=== PATIENT | male | born 1990 | race Caucasian/White ===

== ENCOUNTER 2018-06-13 15:38 | Emergency (ER) | payer MEDICAID | END 2018-06-13 16:48 | disposition left against medical advice (07) | LOC: ER 15:38 | DX: Z00.8 Encounter for other general examination (principal); Z53.21 Procedure and treatment not carried out due to patient leaving prior to being seen by health care provider ==

== ENCOUNTER 2019-09-15 01:04 | Emergency (ER) | payer MEDICARE, MEDICAID ==
[~2019-09-15] VITALS: Ht 180.3 cm; Wt 79.0 kg
[2019-09-15 01:36] LABS: BASOPHILS % (AUTO) 0.6 % (0-1); EOSINOPHILS # (AUTO) 0.1 X10'3 (0-0.9); HEMATOCRIT 44.6 % (42.0-52.0); HEMOGLOBIN 15.6 g/dl (14.0-17.9); LYMPHOCYTES # (AUTO) 2.6 X10'3 (1.1-4.8); LYMPHOCYTES % (AUTO) 35.4 % (21-51); MEAN CORPUSCULAR VOLUME 91.3 FL (78-98); MEAN PLATELET VOLUME 7.5 FL (7.4-10.4); MONOCYTES # (AUTO) 0.5 X10'3 (0-0.9); MONOCYTES % (AUTO) 6.4 % (2-12); NEUTROPHILS # (AUTO) 4.1 X10'3 (1.8-7.7); NEUTROPHILS % (AUTO) 56.6 % (42-75); PLATELET COUNT 265 X10'3 (140-440); RED BLOOD COUNT 4.89 X10'6 (4.70-6.10); WHITE BLOOD COUNT 7.2 X10'3 (4.5-11.0)
[2019-09-15 01:46] LABS: ALANINE AMINOTRANSFERASE 26 U/L (12-78); ALBUMIN 4.4 G/DL (3.4-5.0); ALBUMIN/GLOBULIN RATIO 1.3 (1.1-1.5); ALKALINE PHOSPHATASE 72 IU/L (46-116); ANION GAP 12 (8-16); ASPARTATE AMINO TRANSFERASE 18 U/L (10-37); BILIRUBIN,TOTAL 0.8 MG/DL (0.1-1.0); BLOOD UREA NITROGEN 7 MG/DL (7-18); BUN/CREATININE RATIO 6.5 (5.4-32.0); CALCIUM 8.4 MG/DL (8.5-10.1); CHLORIDE 105 MMOL/L (99-107); CREATININE 1.07 MG/DL (0.60-1.10); ETHANOL 0.086 GM/DL (0.0-0.010); GLUCOSE 123 MG/DL (70-104); POTASSIUM 3.1 MMOL/L (3.5-5.1); SODIUM 144 MMOL/L (135-145); TOTAL PROTEIN 7.7 G/DL (6.4-8.2); eGFR 82 ML/MIN
[2019-09-15 02:43] LABS: URINE AMPHETAMINE SCREEN NEGATIVE (Neg); URINE BARBITUATE SCREEN NEGATIVE (Neg); URINE BENZODIAZEPINES SCREEN NEGATIVE (Neg); URINE CANNABINOID SCREEN NEGATIVE (Neg); URINE COCAINE SCREEN NEGATIVE (Neg); URINE METHADONE SCREEN NEGATIVE (Neg); URINE OPIATE SCREEN NEGATIVE (Neg); URINE PHENCYCLIDINE SCREEN NEGATIVE (Neg)
--- NOTE | 2019-09-15 06:17 | NUR ---
Report received from RN Cap at this time. Patient asleep, no signs of distress noted, per RN patient requested food, breakfast tray ordered. Patient within view of staff at all times, will continue to monitor.
--- NOTE | 2019-09-15 10:38 | NUR ---
Amor from [facility] at bedside to assess the patient at this time.
[2019-09-15 13:14] VITALS: BP 141/90
== END 2019-09-15 13:18 | disposition home or self-care (01) ==
LOC: ER 01:05
DX: S50.811A Abrasion of right forearm, initial encounter (principal); F32.9 Major depressive disorder, single episode, unspecified; R45.851 Suicidal ideations; F10.929 Alcohol use, unspecified with intoxication, unspecified; E87.6 Hypokalemia; F12.90 Cannabis use, unspecified, uncomplicated; X78.1XXA Intentional self-harm by knife, initial encounter; Y93.89 Activity, other specified; Y92.89 Other specified places as the place of occurrence of the external cause; Y99.9 Unspecified external cause status; Y90.9 Presence of alcohol in blood, level not specified
CPT/HCPCS: 36415; 80053; 80305; 80320; 85025; 99284

== ENCOUNTER 2019-11-22 09:04 | Emergency (ER) | payer MEDICARE, MEDICAID ==
[~2019-11-22] VITALS: Ht 180.3 cm; Wt 64.5 kg
[2019-11-22] MEDS ORDERED: normal saline 1000ML IV soln IVB ONE (09:25)
[2019-11-22 09:48] LABS: BASOPHILS % (AUTO) 0.6 % (0-1); EOSINOPHILS % (AUTO) 0.2 % (0-6); HEMOGLOBIN 15.9 g/dl (14.0-17.9); LYMPHOCYTES # (AUTO) 1.3 X10'3 (1.1-4.8); LYMPHOCYTES % (AUTO) 19.7 % (21-51); MEAN CORPUSCULAR HEMOGLOBIN 31.6 PG (27.0-31.0); MEAN CORPUSCULAR HGB CONC 33.9 g/dL (33.0-36.5); MEAN CORPUSCULAR VOLUME 93.1 FL (78-98); MONOCYTES # (AUTO) 0.4 X10'3 (0-0.9); MONOCYTES % (AUTO) 6.8 % (2-12); NEUTROPHILS # (AUTO) 4.7 X10'3 (1.8-7.7); NEUTROPHILS % (AUTO) 72.7 % (42-75); PLATELET COUNT 258 X10'3 (140-440); RED BLOOD COUNT 5.04 X10'6 (4.70-6.10); RED CELL DISTRIBUTION WIDTH 12.9 % (11.5-14.5); WHITE BLOOD COUNT 6.5 X10'3 (4.5-11.0)
[2019-11-22 09:53] LABS: ALANINE AMINOTRANSFERASE 22 U/L (12-78); ALBUMIN 4.9 G/DL (3.4-5.0); ALBUMIN/GLOBULIN RATIO 1.3 (1.1-1.5); ALKALINE PHOSPHATASE 47 IU/L (46-116); ANION GAP 17 (8-16); ASPARTATE AMINO TRANSFERASE 24 U/L (10-37); BILIRUBIN,TOTAL 1.2 MG/DL (0.1-1.0); BLOOD UREA NITROGEN 30 MG/DL (7-18); BUN/CREATININE RATIO 22.4 (5.4-32.0); CALCIUM 10.1 MG/DL (8.5-10.1); CHLORIDE 110 MMOL/L (99-107); CREATININE 1.34 MG/DL (0.60-1.10); GLUCOSE 90 MG/DL (70-104); LIPASE 120 U/L (73-393); SODIUM 150 MMOL/L (135-145); TOTAL CARBON DIOXIDE 23.5 MMOL/L (24-32); TOTAL PROTEIN 8.6 G/DL (6.4-8.2); eGFR 63 ML/MIN
[2019-11-22 11:48] LABS: CLARITY,URINE CLEAR (Clear); COLOR,URINE YELLOW (Yellow); GLUCOSE, URINE NEGATIVE (Neg); KETONES,URINE >=80 mg/dl (Neg); LEUKOCYTE ESTERASE ,URINE NEGATIVE (Neg); NITRITES, URINE NEGATIVE (Neg); OCCULT BLOOD,URINE NEGATIVE (Neg); PH,URINE 5.5 (4.8-8.0); PROTEIN,URINE 30 mg/dl (Neg)
[2019-11-22 11:54] LABS: URINE AMPHETAMINE SCREEN NEGATIVE (Neg); URINE BARBITUATE SCREEN NEGATIVE (Neg); URINE BENZODIAZEPINES SCREEN NEGATIVE (Neg); URINE CANNABINOID SCREEN NEGATIVE (Neg); URINE COCAINE SCREEN NEGATIVE (Neg); URINE METHADONE SCREEN NEGATIVE (Neg); URINE OPIATE SCREEN NEGATIVE (Neg); URINE PHENCYCLIDINE SCREEN NEGATIVE (Neg)
[2019-11-22 12:04] LABS: UA COLLECTION TYPE NON-SPECIFIED
[2019-11-22 12:05] LABS: MUCUS STRANDS MANY /LPF (Neg); SQUAMOUS EPITHELIAL CELL,UR FEW /LPF (FEW)
[2019-11-22 12:06] LABS: BACTERIA,URINE FEW /HPF (Neg); RBC,URINE 0-2 /HPF (0-2); WBC,URINE 0-4 /HPF (0-4)
[2019-11-22] MEDS ORDERED: MAGN296S68 PO (12:21)
[2019-11-22 13:09] VITALS: BP 118/74
== END 2019-11-22 13:07 | disposition home or self-care (01) ==
LOC: ER 09:04
DX: K59.00 Constipation, unspecified (principal); E86.0 Dehydration; F12.90 Cannabis use, unspecified, uncomplicated; Z72.89 Other problems related to lifestyle; Z79.899 Other long term (current) drug therapy
CPT/HCPCS: 36415; 74018; 80053; 80305; 81001; 83690; 85025; 96360; 99284; J7030

== ENCOUNTER → 2020-11-16 | Emergency (ER) | payer MEDICARE, MEDICAID ==
[~2020-11-16] VITALS: Ht 175.3 cm; Wt 66.5 kg
[~2020-11-16] MED LIST: MAGN296S68 PO
[2020-11-16 12:27] VITALS: BP 133/93
[2020-11-16 13:05] LABS: BASOPHILS % (AUTO) 0.4 % (0-1); EOSINOPHILS % (AUTO) 0.7 % (0-6); HEMATOCRIT 44.3 % (42.0-52.0); LYMPHOCYTES # (AUTO) 1.6 X10'3 (1.1-4.8); LYMPHOCYTES % (AUTO) 24.9 % (21-51); MEAN CORPUSCULAR HEMOGLOBIN 30.9 PG (27.0-31.0); MEAN CORPUSCULAR HGB CONC 33.9 g/dL (33.0-36.5); MEAN PLATELET VOLUME 7.8 FL (7.4-10.4); MONOCYTES # (AUTO) 0.4 X10'3 (0-0.9); MONOCYTES % (AUTO) 6.4 % (2-12); NEUTROPHILS # (AUTO) 4.3 X10'3 (1.8-7.7); NEUTROPHILS % (AUTO) 67.6 % (42-75); PLATELET COUNT 236 X10'3 (140-440); RED BLOOD COUNT 4.86 X10'6 (4.70-6.10); WHITE BLOOD COUNT 6.3 X10'3 (4.5-11.0)
[2020-11-16 13:30] LABS: ALANINE AMINOTRANSFERASE 13 U/L (12-78); ALBUMIN 4.2 G/DL (3.4-5.0); ALBUMIN/GLOBULIN RATIO 1.1 (1.1-1.5); ALKALINE PHOSPHATASE 62 IU/L (46-116); ANION GAP 11 (8-16); ASPARTATE AMINO TRANSFERASE 15 U/L (10-37); BILIRUBIN,TOTAL 0.8 MG/DL (0.1-1.0); BLOOD UREA NITROGEN 17 MG/DL (7-18); BUN/CREATININE RATIO 16.7 (5.4-32.0); CALCIUM 8.9 MG/DL (8.5-10.1); CHLORIDE 105 MMOL/L (99-107); CREATININE 1.02 MG/DL (0.60-1.10); GLUCOSE 84 MG/DL (70-104); LIPASE 66 U/L (73-393); POTASSIUM 4.1 MMOL/L (3.5-5.1); SODIUM 143 MMOL/L (135-145); TOTAL CARBON DIOXIDE 27.2 MMOL/L (24-32); TOTAL PROTEIN 8.1 G/DL (6.4-8.2); eGFR 86 ML/MIN
== END | disposition home or self-care (01) ==
LOC: ER 11:33
DX: K59.00 Constipation, unspecified (principal); F12.90 Cannabis use, unspecified, uncomplicated; Z72.89 Other problems related to lifestyle; Z79.899 Other long term (current) drug therapy
CPT/HCPCS: 36415; 74018; 80053; 82948; 83690; 85025; 99284

== ENCOUNTER 2021-05-16 06:25 | Emergency (ER) | payer MEDICARE, MEDICAID ==
[~2021-05-16] VITALS: Ht 180.3 cm; Wt 61.8 kg
[2021-05-16 13:47] VITALS: BP 120/89
== END 2021-05-16 14:09 | disposition home or self-care (01) ==
LOC: ER 06:26
DX: R19.7 Diarrhea, unspecified (principal); F12.90 Cannabis use, unspecified, uncomplicated; Z72.89 Other problems related to lifestyle; Z79.899 Other long term (current) drug therapy
CPT/HCPCS: 99281

== ENCOUNTER 2021-05-28 16:18 | Emergency (ER) | payer MEDICARE, MEDICAID ==
[~2021-05-28] VITALS: Ht 180.3 cm; Wt 65.0 kg
[2021-05-28 16:28] VITALS: BP 120/79
[2021-05-28 17:49] LABS: CLARITY,URINE SLIGHTLY CLOUDY (Clear); COLOR,URINE YELLOW (Yellow); GLUCOSE, URINE NEGATIVE (Neg); KETONES,URINE NEGATIVE (Neg); LEUKOCYTE ESTERASE ,URINE NEGATIVE (Neg); NITRITES, URINE NEGATIVE (Neg); OCCULT BLOOD,URINE NEGATIVE (Neg); PH,URINE 6.5 (4.8-8.0); PROTEIN,URINE NEGATIVE (Neg); UROBILINOGEN,URINE 0.2 E.U/dL (0.2-1.0)
[2021-05-28 17:57] LABS: UA COLLECTION TYPE CLN CATCH MIDSTREAM
[2021-05-28 17:59] LABS: BASOPHILS % (AUTO) 0.7 % (0-1); EOSINOPHILS % (AUTO) 0.4 % (0-6); HEMATOCRIT 41.8 % (42.0-52.0); HEMOGLOBIN 14.5 g/dl (14.0-17.9); LYMPHOCYTES # (AUTO) 1.4 X10'3 (1.1-4.8); LYMPHOCYTES % (AUTO) 32.5 % (21-51); MEAN CORPUSCULAR HEMOGLOBIN 31.4 PG (27.0-31.0); MEAN CORPUSCULAR HGB CONC 34.6 g/dL (33.0-36.5); MEAN CORPUSCULAR VOLUME 90.7 FL (78-98); MEAN PLATELET VOLUME 7.9 FL (7.4-10.4); MONOCYTES # (AUTO) 0.3 X10'3 (0-0.9); MONOCYTES % (AUTO) 6.8 % (2-12); NEUTROPHILS # (AUTO) 2.5 X10'3 (1.8-7.7); NEUTROPHILS % (AUTO) 59.6 % (42-75); PLATELET COUNT 236 X10'3 (140-440); RED BLOOD COUNT 4.61 X10'6 (4.70-6.10); RED CELL DISTRIBUTION WIDTH 13.5 % (11.5-14.5); WHITE BLOOD COUNT 4.2 X10'3 (4.5-11.0)
[2021-05-28 18:01] LABS: MUCUS STRANDS MANY /LPF (Neg); SQUAMOUS EPITHELIAL CELL,UR FEW /LPF (FEW)
[2021-05-28 18:02] LABS: WBC,URINE 0-4 /HPF (0-4)
[2021-05-28 18:03] LABS: BACTERIA,URINE FEW /HPF (Neg); RBC,URINE 0-2 /HPF (0-2)
[2021-05-28 18:09] LABS: ALANINE AMINOTRANSFERASE 15 U/L (12-78); ALBUMIN 4.5 G/DL (3.4-5.0); ALBUMIN/GLOBULIN RATIO 1.5 (1.1-1.5); ALKALINE PHOSPHATASE 56 IU/L (46-116); ANION GAP 8 (8-16); ASPARTATE AMINO TRANSFERASE 15 U/L (10-37); BILIRUBIN,TOTAL 1.1 MG/DL (0.1-1.0); BLOOD UREA NITROGEN 9 MG/DL (7-18); BUN/CREATININE RATIO 6.8 (5.4-32.0); CALCIUM 9.4 MG/DL (8.5-10.1); CHLORIDE 107 MMOL/L (99-107); CREATININE 1.32 MG/DL (0.60-1.10); GLUCOSE 97 MG/DL (70-104); POTASSIUM 4.1 MMOL/L (3.5-5.1); SODIUM 142 MMOL/L (135-145); TOTAL CARBON DIOXIDE 27.5 MMOL/L (24-32); TOTAL PROTEIN 7.5 G/DL (6.4-8.2); eGFR 64 ML/MIN
[2021-05-28 18:10] LABS: URINE AMPHETAMINE SCREEN NEGATIVE (Neg); URINE BARBITUATE SCREEN NEGATIVE (Neg); URINE BENZODIAZEPINES SCREEN NEGATIVE (Neg); URINE CANNABINOID SCREEN NEGATIVE (Neg); URINE COCAINE SCREEN NEGATIVE (Neg); URINE METHADONE SCREEN NEGATIVE (Neg); URINE OPIATE SCREEN NEGATIVE (Neg); URINE PHENCYCLIDINE SCREEN NEGATIVE (Neg)
[2021-05-28 18:21] LABS: ETHANOL < 0.010 GM/DL (0.0-0.010)
== END 2021-05-28 18:43 | disposition home or self-care (01) ==
LOC: ER 16:19
DX: R19.7 Diarrhea, unspecified (principal); Z20.822 Contact with and (suspected) exposure to COVID-19; R10.84 Generalized abdominal pain; R11.0 Nausea; F12.90 Cannabis use, unspecified, uncomplicated; Z72.89 Other problems related to lifestyle; Z79.899 Other long term (current) drug therapy
CPT/HCPCS: 36415; 74019; 80053; 80305; 80320; 81001; 84443; 85025; 87635; 99284; C9803

== ENCOUNTER 2022-02-24 18:11 | Emergency (ER) | payer MEDICARE, MEDICAID ==
[~2022-02-24] VITALS: Ht 175.3 cm; Wt 54.3 kg
[2022-02-24 18:47] VITALS: BP 111/77
== END 2022-02-25 03:18 | disposition left against medical advice (07) ==
LOC: ER 18:13
DX: H92.01 Otalgia, right ear (principal); Z20.822 Contact with and (suspected) exposure to COVID-19; Z53.21 Procedure and treatment not carried out due to patient leaving prior to being seen by health care provider
CPT/HCPCS: 87811

== ENCOUNTER 2022-04-06 12:32 | Emergency (ER) | payer MEDICARE, MEDICAID ==
[~2022-04-06 12:32] MED LIST changes: +ESCI20TA39 PO; -MAGN296S68 PO; +MIDO2.5T14 PO; +NO HOME MEDS; +PANT40TA54 PO; +TRAZ-251 PO
[2022-04-07] MEDS ORDERED: TRAZ-256 PO (16:17)
[2022-04-07] MEDS ORDERED: PANT-47 PO (16:17)
[2022-04-07] MEDS ORDERED: ESCI20TA39 PO (16:17)
== END 2022-04-06 15:31 | disposition left against medical advice (07) ==
LOC: ER 12:33
DX: R45.851 Suicidal ideations (principal); Z53.21 Procedure and treatment not carried out due to patient leaving prior to being seen by health care provider

== ENCOUNTER 2022-04-07 14:20 | Inpatient (IN) | payer MEDICARE, MEDICAID ==
[~2022-04-07] VITALS: Ht 175.3 cm; Wt 61.7 kg
--- NOTE | 2022-04-07 15:25 | NUR ---
Admission Note: Pt. was admitted from [facility] in a w/c, safety check was completed and belongings were inventoried by Lila Lawler. Pt. is on a 5150 for DTS. Per 5150: Pt. made suicidal statements, and reported placing a knife to his neck and starting to stab himself in a suicide attempt. Pt. has a history of 3-5 past suicide attempts, the most recent was one month ago. Pt. scored as a high risk on the [place] Suicide Risk assessment, however he is able to contract for safety while on the unit. This was endorsed to RIC Soriano and Q 15min safety checks were ordered.
[2022-04-07] MEDS ORDERED: loperamide 2mg capsule PO PRN (16:00)
[2022-04-07] MEDS ORDERED: mag hydrox/Alum hydrox/simeth 30ml oral suspension PO PRN (16:00)
[2022-04-07] MEDS ORDERED: acetaminophen 325mg tablet PO PRN ×2 (16:00)
[2022-04-07 16:01] VITALS: BP 121/82
[2022-04-07] MEDS ORDERED: TRAZ-256 PO (16:17)
[2022-04-07] MEDS ORDERED: ESCI20TA39 PO (16:17)
[2022-04-07] MEDS ORDERED: PANT-47 PO (16:17)
[2022-04-07] MEDS ORDERED: traZODone 50mg tablet PO PRN (16:35)
[2022-04-07 19:25] VITALS: BP 100/59
--- NOTE | 2022-04-08 04:24 | NUR ---
Nursing Progress Note: Problem: Pt. was admitted from [facility] Pt. is on a 5150 for DTS. Per 5150: Pt. made suicidal statements, and reported placing a knife to his neck and starting to stab himself in a suicide attempt. Pt. has a history of 3-5 past suicide attempts, the most recent was one month ago. Per ER notes pt has Differential Dx of psychosis, depression, suicidal ideation. Interventions: Maintained a safe and supportive environment, administered medication per orders with no adverse side effects, provided clear and simple instructions, provided redirection as needed, and maintained Q 15min safety checks. Response: Pt was resting in bed at start of shift. 1:1 assessment and interview at bedside, pt unable to maintain eye contact. Pt states he is having SI because he is depressed about life. Pt also states he has AH/VH. When asked of content pt states I dont remember what they say. Pt states he sees images of people. Pt did not eat dinner and refused snack. Pt states he is not hungry. Pt isolates in room. Pt slept through the night. Plan: Crisis interruption, stabilization with medication adjustment, management and monitoring in a safe and therapeutic environment until stable.
[2022-04-08 07:41] VITALS: BP 116/85
--- NOTE | 2022-04-08 07:48 | NUR ---
Noted pt low BMI 18.0 in EMR. Pt admit from [facility] DX SI, 5150, depression, and having AH/VH per EMR. Pt was malnourished on recent prior 03/13/22 admit though by discharge 04/02 was eating adequately from meals and Ensure Enlives TID. Current standing scaled wt 55.2kg down from 57.7 04/02 though pt w/ normal strength, no edema/wounds, and prior adequate intake hx. Given recent adequate intake hx pt lacks malnutrition criteria at this time though is high risk if PO regresses this admit. Will monitor for PO trends and malnutrition criteria this admit. Addendum: 04/08/22 at [address] Amended: Links added.
[2022-04-08] MEDS: pantoprazole 40mg Tablet.DR PO SCH (08:17)
[2022-04-08] MEDS: ESCITALOPRAM OXALATE 5 MG TABLET PO SCH (08:18)
--- NOTE | 2022-04-08 17:12 | NUR ---
Nursing Progress Note: Problem: Pt. was admitted from [facility] Pt. is on a 5150 for DTS. Per 5150: Pt. made suicidal statements, and reported placing a knife to his neck and starting to stab himself in a suicide attempt. Pt. has a history of 3-5 past suicide attempts, the most recent was one month ago. Patient was discharged from [facility] on 04/03/22. Per ER notes pt has Differential Dx of psychosis, depression, suicidal ideation. Interventions: Provide medication administration & medication management; Maintained a safe & supportive environment; Clear & simple instructions; Direction & encouragement regarding performance of ADLs; monitored behaviors & maintained clear boundaries; Patient physical assessment & 1:1 patient interview; Therapeutic conversation & active listening; Patient education & monitoring. Response: Received patient while he was asleep in his bed and woke up at approximately 0740. Patient appears to have a flat affect. Speaks only to questions asked by this Electronic Installer. Patient went to the [facility] for breakfast, but only ate a minimal amount of breakfast. Patient returned to his room for a patient interview. Patient reports Im very suicidal and I will kill myself with the knife that I have. Informed the patient that we will try to help him with his medication regime and also attending group sessions starting tomorrow. Patient gave this Electronic Installer a small grin and informed Okay. Patient slept all morning and got up for lunch then returned back to bed. Patient self-isolated all day. Plan: Crisis interruption, stabilization with medication adjustment, management and monitoring in a safe and therapeutic environment until stable.
[2022-04-08 20:19] VITALS: BP 99/60
--- NOTE | 2022-04-09 02:54 | NUR ---
Nursing Progress Note: Problem: Pt. was admitted from [facility] Pt. is on a 5150 for DTS. Per 5150: Pt. made suicidal statements, and reported placing a knife to his neck and starting to stab himself in a suicide attempt. Pt. has a history of 3-5 past suicide attempts, the most recent was one month ago. Patient was discharged from [facility] on 04/03/22. Per ER notes pt has Differential Dx of psychosis, depression, suicidal ideation. Interventions: Provide medication administration & medication management; Maintained a safe & supportive environment; Clear & simple instructions; Direction & encouragement regarding performance of ADLs; monitored behaviors & maintained clear boundaries; Patient physical assessment & 1:1 patient interview; Therapeutic conversation & active listening; Patient education & monitoring. Response: Pt isolated to room all shift. Declined snack. No HS routine medications. Declined PRN trazodone. Pt has a flat affect minimal answers to questions in a very soft monotone. Pt says he has suicidal thoughts but would not do anything in here. He says he hears voices but says he does not remember what they say. Declined snack sleeping at this time. Plan: Crisis interruption, stabilization with medication adjustment, management and monitoring in a safe and therapeutic environment until stable.
[2022-04-09 07:46] VITALS: BP 136/77
[2022-04-09] MEDS: pantoprazole 40mg Tablet.DR PO SCH (07:58)
[2022-04-09] MEDS: ESCITALOPRAM OXALATE 5 MG TABLET PO SCH (07:58)
--- NOTE | 2022-04-09 08:09 | NUR ---
Mom: Renata-# [phone] DAVID Alfaro
--- NOTE | 2022-04-09 08:11 | NUR ---
[facility] REFERRAL Completed and sent [facility] referral. DAVID Alfaro
[2022-04-09] MEDS: LORazepam 0.5 MG tablet PO PRN (13:50)
--- NOTE | 2022-04-09 16:44 | NUR ---
Nursing Progress Note: Problem: Pt. was admitted from [facility] Pt. is on a 5150 for DTS. Per 5150: Pt. made suicidal statements, and reported placing a knife to his neck and starting to stab himself in a suicide attempt. Pt. has a history of 3-5 past suicide attempts, the most recent was one month ago. Patient was discharged from [facility] on 04/03/22. Per ER notes pt has Differential Dx of psychosis, depression, suicidal ideation. Interventions: Provide medication administration & medication management; Maintained a safe & supportive environment; Clear & simple instructions; Direction & encouragement regarding performance of ADLs; monitored behaviors & maintained clear boundaries; Patient physical assessment & 1:1 patient interview; Therapeutic conversation & active listening; Patient education & monitoring. Response: Received patient when he woke up from his night sleep at 0720. During the patient interview, the patient denied anxiety, and reported When I get out of here I am going to sharpen my knife first then use it on my neck. Patient was observed staring eyes wide open multiple times while sitting alongside his bed throughout the day, and he appeared restless, although denying any s/s of anxiety throughout the morning. At approximately 1230 patient was observed ambulating throughout the halls, staring blankly straight ahead without making any eye contact with others, and refused his lunch. TC placed to RIC Dimas, to inform of patients anxiety and need for a prn medication to treat his anxiety. Dr. Muñoz was readily available and ordered Ativan 0.5mg po qid prn. Patient received his first dose at 1350 and laid down to rest at this time. Plan: Crisis interruption, stabilization with medication adjustment, management and monitoring in a safe and therapeutic environment until stable. Patient has been referred to [facility].
[2022-04-09 20:00] VITALS: BP 95/54
--- NOTE | 2022-04-10 01:12 | NUR ---
Nursing Progress Note: Problem: Pt. was admitted from [facility] Pt. is on a 5150 for DTS. Per 5150: Pt. made suicidal statements, and reported placing a knife to his neck and starting to stab himself in a suicide attempt. Pt. has a history of 3-5 past suicide attempts, the most recent was one month ago. Patient was discharged from [facility] on 04/03/22. Per ER notes pt has Differential Dx of psychosis, depression, suicidal ideation. Interventions: Provide medication administration & medication management; Maintained a safe & supportive environment; Clear & simple instructions; Direction & encouragement regarding performance of ADLs; monitored behaviors & maintained clear boundaries; Patient physical assessment & 1:1 patient interview; Therapeutic conversation & active listening; Patient education & monitoring. Response: 1:1 at bedside. Pt laying in bed. Appears withdrawn and depressed. Denies SI and hearing voices at this time. He tells me his depression started at age 3yo. Refused snack. "Not hungry". Encouraged him to try and eat. His lips appeared dry and chapped. Lip balm provided and pt reported it helping. Compliant with all meds. No HS meds scheduled. Pt isolated to room all shift. Declined snack. No HS routine medications. Declined PRN trazodone. Pt has a flat affect minimal answers to questions in a very soft monotone. Pt says he has suicidal thoughts but would not do anything in here. He says he hears voices but says he does not remember what they say. Declined snack sleeping at this time. Plan: Crisis interruption, stabilization with medication adjustment, management and monitoring in a safe and therapeutic environment until stable. Addendum: 04/10/22 at 0131 by Lydia Khan RN Disregard this note see following note.
--- NOTE | 2022-04-10 01:32 | NUR ---
Nursing Progress Note: Problem: Pt. was admitted from [facility] Pt. is on a 5150 for DTS. Per 5150: Pt. made suicidal statements, and reported placing a knife to his neck and starting to stab himself in a suicide attempt. Pt. has a history of 3-5 past suicide attempts, the most recent was one month ago. Patient was discharged from [facility] on 04/03/22. Per ER notes pt has Differential Dx of psychosis, depression, suicidal ideation. Interventions: Provide medication administration & medication management; Maintained a safe & supportive environment; Clear & simple instructions; Direction & encouragement regarding performance of ADLs; monitored behaviors & maintained clear boundaries; Patient physical assessment & 1:1 patient interview; Therapeutic conversation & active listening; Patient education & monitoring. Response: 1:1 at bedside. Pt laying in bed. Appears withdrawn and depressed. Denies SI and hearing voices at this time. He tells me his depression started at age 3yo. Refused snack. "Not hungry". Encouraged him to try and eat. His lips appeared dry and chapped. Lip balm provided and pt reported it helping. Compliant with all meds. No HS meds scheduled. Pt isolated to room all shift. Plan: Crisis interruption, stabilization with medication adjustment, management and monitoring in a safe and therapeutic environment until stable.
[2022-04-10 07:28] VITALS: BP 106/62
[2022-04-10] MEDS: pantoprazole 40mg Tablet.DR PO SCH (07:28)
[2022-04-10] MEDS: ESCITALOPRAM OXALATE 5 MG TABLET PO SCH (07:28)
[2022-04-10] MEDS ORDERED: haloperidol 5mg tablet PO PRN (15:05)
--- NOTE | 2022-04-10 17:28 | NUR ---
Nursing Progress Note: Yasmany Spaulding Problem: Pt. was admitted from [facility] Pt. is on a 5150 for DTS. Per 5150: Pt. made suicidal statements, and reported placing a knife to his neck and starting to stab himself in a suicide attempt. Pt. has a history of 3-5 past suicide attempts, the most recent was one month ago. Patient was discharged from [facility] on 04/03/22. Dx of psychosis, depression, suicidal ideation. Interventions: Medication administration, 1:1 MH assessment, maintained a safe and supportive environment, provided clear and simple instructions, provided encouragement regarding performance of ADLs, monitored behaviors and maintained clear boundaries, maintained Q15 minute safety checks. Response: Received pt. sleeping in his room, he woke for medications which he took without hesitation. Pt. endorses SI, stating Ill cut myself he denies HI, endorses AH I hear people, but I cant hear everything they say he denies VH. Pt. isolated in his room all shift. He briefly attended meals but left without eating breakfast and lunch. Pt. was willing to drink an Ensure at the bedside with this copy writer and also had a juice. He has poor eye contact, and speaks in a whispered voice, and presents as down casted. Pt. is disheveled, poor hygiene, and wears unit scrubs. Plan: Crisis interruption, stabilization with medication adjustment, management and monitoring in a safe and therapeutic environment until stable. Patient has been referred to [facility].
[2022-04-10 19:00] VITALS: BP 95/54
--- NOTE | 2022-04-11 04:53 | NUR ---
Nursing Progress Note: Problem: Pt. was admitted from [facility] Pt. is on a 5150 for DTS. Per 5150: Pt. made suicidal statements, and reported placing a knife to his neck and starting to stab himself in a suicide attempt. Pt. has a history of 3-5 past suicide attempts, the most recent was one month ago. Patient was discharged from [facility] on 04/03/22. Dx of psychosis, depression, suicidal ideation. Interventions: Medication administration, 1:1 MH assessment, maintained a safe and supportive environment, provided clear and simple instructions, provided encouragement regarding performance of ADLs, monitored behaviors and maintained clear boundaries, maintained Q15 minute safety checks. Response: Patient is pleasant but guarded; no scheduled medications this shift and denied needing any PRN medication. Patient denied SI, HI, A/VH; patient responded as minimal as possible. He remained in bed throughout this shift; does not appear to be having difficulty sleeping. Plan: Crisis interruption, stabilization with medication adjustment, management and monitoring in a safe and therapeutic environment until stable. Patient has been referred to [facility].
--- NOTE | 2022-04-11 07:10 | NUR ---
Initial: Pt admitted w/ major depressive disorder and SI per EMR. Currently on Regular diet mostly refusing meals. Per documentation pt mostly stays in room all day and says he is not hungry. Per nursing notes pt was willing to drink Ensure at bedside though ONS not currently ordered. Recommend adding an Ensure Enlive TID if pt is willing to drink them. LBM 04/09. Will continue to monitor. Recs: 1. Continue Regular diet; encourage PO 2. Ensure Enlive TID 3. Bowel care PRN 4. Weekly wts Addendum: 04/11/22 at [address] Amended: Links added.
[2022-04-11] MEDS: pantoprazole 40mg Tablet.DR PO SCH (07:25)
[2022-04-11] MEDS: ESCITALOPRAM OXALATE 5 MG TABLET PO SCH (07:26)
[2022-04-11 08:00] VITALS: BP 102/74
[2022-04-11] MEDS: lactose-reduced food (Ensure Enlive) - 237ml bottle PO SCH ×3 (08:00→18:33)
[2022-04-11] MEDS: LORazepam 0.5 MG tablet PO PRN ×2 (12:25→18:40)
--- NOTE | 2022-04-11 16:19 | NUR ---
Nursing Progress Note: Yasmany Spaulding Problem: Pt. was admitted from [facility] Pt. is on a 5150 for DTS. Per 5150: Pt. made suicidal statements, and reported placing a knife to his neck and starting to stab himself in a suicide attempt. Pt. has a history of 3-5 past suicide attempts, the most recent was one month ago. Patient was discharged from [facility] on 04/03/22. Dx of psychosis, depression, suicidal ideation. Interventions: Medication administration, 1:1 assessment, maintained a safe and supportive environment, provided clear and simple instructions, provided encouragement regarding performance of ADLs, monitored behaviors and maintained clear boundaries, maintained Q15 minute safety checks. Response: Received pt. sleeping in his room and awoke to take his medications. Pt. endorses SI, and reports he would use a knife he denies HI, AH, VH. Pt. required several prompts to eat his meals but often refused to go in dining room, or eat if the tray was brought in. Pt. was encouraged to increase bedside fluids, but is not compliant. Pt. presents as disheveled, poor hygiene, and wearing the same street clothes from yesterday. Pt. did take a shower after several request but did not attend to oral care. Pt. reported normal BM, but later reported LBM was 5 days ago. The communications writer reproached pt. and discussed BM Hx and he now reports 3 days since LBM, he presents as a poor historian, but c/o feeling full Bowel sounds sluggish; PRN MOM given. Pt. presents withdrawn, minimal communication, and often mumbles in a small voice. Pt. approached staff this afternoon c/o anxiety and was given PRN Ativan. He remained in his room and isolated from cohorts. Pt. refused all meals this shift. PRNs : Ativan Plan: Crisis interruption, stabilization with medication adjustment, management and monitoring in a safe and therapeutic environment until stable. Patient has been referred to [facility].
[2022-04-11 19:00] VITALS: BP 108/64
--- NOTE | 2022-04-12 03:33 | NUR ---
Nursing Progress Note: Problem: Pt. was admitted from [facility] Pt. is on a 5150 for DTS. Per 5150: Pt. made suicidal statements, and reported placing a knife to his neck and starting to stab himself in a suicide attempt. Pt. has a history of 3-5 past suicide attempts, the most recent was one month ago. Patient was discharged from [facility] on 04/03/22. Dx of psychosis, depression, suicidal ideation. Interventions: Medication administration, 1:1 MH assessment, maintained a safe and supportive environment, provided clear and simple instructions, provided encouragement regarding performance of ADLs, monitored behaviors and maintained clear boundaries, maintained Q15 minute safety checks. Response: Patient is pleasant; remains isolative and guarded. Talked to production underwriter a little more this shift than previous night. Appeared to be anxious and PRN Ativan provided. Patient appears severely depressed and stays in bed throughout the entire shift. He endorses SI without a plan; denies HI, A/VH. Patient encouraged to drink more fluids. He is observed sleeping and does not appear to be having difficulty. D/t Hx of HIV, Dr. Stephenson ordered lab draw for CD4 count and viral load. Plan: Crisis interruption, stabilization with medication adjustment, management and monitoring in a safe and therapeutic environment until stable. Patient has been referred to [facility].
[2022-04-12 07:05] VITALS: BP 104/63
[2022-04-12] MEDS: pantoprazole 40mg Tablet.DR PO SCH (07:46)
[2022-04-12] MEDS: ESCITALOPRAM OXALATE 5 MG TABLET PO SCH (07:48)
[2022-04-12] MEDS: lactose-reduced food (Ensure Enlive) - 237ml bottle PO SCH ×3 (08:00→18:00)
--- NOTE | 2022-04-12 16:16 | NUR ---
Nursing Progress Note: Yasmany Spaulding Problem: Pt. was admitted from [facility] Pt. is on a 5150 for DTS. Per 5150: Pt. made suicidal statements, and reported placing a knife to his neck and starting to stab himself in a suicide attempt. Pt. has a history of 3-5 past suicide attempts, the most recent was one month ago. Patient was discharged from [facility] on 04/03/22. Dx of psychosis, depression, suicidal ideation. Interventions: Medication administration, 1:1 MH assessment, maintained a safe and supportive environment, provided clear and simple instructions, provided encouragement regarding performance of ADLs, monitored behaviors and maintained clear boundaries, maintained Q15 minute safety checks. Response: Received pt. sleeping in his room and awoke to take his medications. Pt. endorses SI without a plan, and denies HI, AH, VH and has no DC plan. Pt. often speaks so quietly he is inaudible. Pt. presents in a weakened and frail state. He refused all meals this shift and for the past 3 days, but will drink his Ensures when prompted and delivered, as he doesnt attend meal times. Pt. has been encouraged to increase fluids and leave his room to attend meals and groups. Pt. is down casted, disheveled, and wears unit scrubs. Pt. refused all meals this shift. PRNs : None Plan: Crisis interruption, stabilization with medication adjustment, management and monitoring in a safe and therapeutic environment until stable. Patient has been referred to [facility].
[2022-04-12 19:00] VITALS: BP 93/59
[2022-04-12] MEDS: OLANZAPINE 5 MG TABLET PO SCH (21:00)
--- NOTE | 2022-04-13 03:12 | NUR ---
Nursing Progress Note: Yasmany Spaulding Problem: Pt. was admitted from [facility] Pt. is on a 5150 for DTS. Per 5150: Pt. made suicidal statements, and reported placing a knife to his neck and starting to stab himself in a suicide attempt. Pt. has a history of 3-5 past suicide attempts, the most recent was one month ago. Patient was discharged from [facility] on 04/03/22. Dx of psychosis, depression, suicidal ideation. Interventions: Medication administration, 1:1 MH assessment, maintained a safe and supportive environment, provided clear and simple instructions, provided encouragement regarding performance of ADLs, monitored behaviors and maintained clear boundaries, maintained Q15 minute safety checks. Response: Patient was found sleeping at beginning of shift. Patient continued to sleep through out shift. Patient refused to participate in snack and ignored nurse when trying to offer him night medication. Plan: Crisis interruption, stabilization with medication adjustment, management and monitoring in a safe and therapeutic environment until stable. Patient has been referred to [facility].
[2022-04-13 07:33] VITALS: BP 114/69
[2022-04-13] MEDS: ESCITALOPRAM OXALATE 5 MG TABLET PO SCH (07:59)
[2022-04-13] MEDS: lactose-reduced food (Ensure Enlive) - 237ml bottle PO SCH ×3 (07:59→18:13)
[2022-04-13] MEDS: pantoprazole 40mg Tablet.DR PO SCH (07:59)
[2022-04-13] MEDS: OLANZapine 2.5MG tablet PO SCH (07:59)
--- NOTE | 2022-04-13 09:15 | NUR ---
F/u: Pt refusing all meals w/ ~50% avg Ensure Plus High Protein TIDWM substitute for Ensure Enlive while out of stock; not meeting needs. LBM 12/5 constipated per EMR; TRACY d/w RN regarding routine bowel regimen if MD agreeable. Pt both reports he both does and doesn't eat because of tapeworm per PA note. Pt not participating in mealtimes per RN notes. At this time lacks minimum two malnutrition criteria though is at high risk w/ current intake trends; will monitor further wt trends. Will monitor for further PO acceptance and nutrition intervention needs. Recs: 1. Continue Regular diet; encourage PO 2. Ensure Enlive TID; substitute Ensure Plus High Protein TID while out of Ensure Enlives 3. Bowel care PRN 4. Weekly wts Addendum: 04/13/22 at [address] Amended: Links added.
[2022-04-13 09:59] LABS: ALBUMIN 4.2 G/DL (3.4-5.0); ANION GAP 12 (8-16); BLOOD UREA NITROGEN 20 MG/DL (7-18); BUN/CREATININE RATIO 18.9 (5.4-32.0); CALCIUM 9.2 MG/DL (8.5-10.1); CHLORIDE 101 MMOL/L (99-107); CREATININE 1.06 MG/DL (0.60-1.10); GLUCOSE 79 MG/DL (70-104); POTASSIUM 4.4 MMOL/L (3.5-5.1); SODIUM 140 MMOL/L (135-145); TOTAL CARBON DIOXIDE 27.2 MMOL/L (24-32); eGFR 81 ML/MIN
[2022-04-13 10:01] LABS: BASOPHILS % (AUTO) 0.6 % (0-1); EOSINOPHILS % (AUTO) 0.3 % (0-6); HEMATOCRIT 40.2 % (42.0-52.0); HEMOGLOBIN 13.7 g/dl (14.0-17.9); LYMPHOCYTES # (AUTO) 0.7 X10'3 (1.1-4.8); LYMPHOCYTES % (AUTO) 12.1 % (21-51); MEAN CORPUSCULAR HEMOGLOBIN 31.8 PG (27.0-31.0); MEAN CORPUSCULAR HGB CONC 34.1 g/dL (33.0-36.5); MEAN CORPUSCULAR VOLUME 93.3 FL (78-98); MEAN PLATELET VOLUME 7.6 FL (7.4-10.4); MONOCYTES # (AUTO) 0.2 X10'3 (0-0.9); NEUTROPHILS # (AUTO) 5.1 X10'3 (1.8-7.7); PLATELET COUNT 222 X10'3 (140-440); RED BLOOD COUNT 4.31 X10'6 (4.70-6.10); RED CELL DISTRIBUTION WIDTH 14.5 % (11.5-14.5)
[2022-04-13 12:05] LABS: % CD 4 POS. LYMPH 44.6 % (30.8-58.5); ABSOLUTE CD 4 HELPER 357 /uL (359-1519); BASOS 1 % (Not Estab.); EOS 1 % (Not Estab.); HEMATOCRIT 39.2 % (37.5-51.0); HEMOGLOBIN 13.3 g/dL (13.0-17.7); LYMPHS 13 % (Not Estab.); LYMPHS (ABSOLUTE) 0.8 x10E3/uL (0.7-3.1); MCH 31.8 pg (26.6-33.0); MCHC 33.9 g/dL (31.5-35.7); MCV 94 fL (79-97); MONOCYTES 7 % (Not Estab.); MONOCYTES (ABSOLUTE) 0.4 x10E3/uL (0.1-0.9); NEUTROPHILS 78 % (Not Estab.); PLATELETS 209 x10E3/uL (150-450); RBC 4.18 x10E6/uL (4.14-5.80); RDW 13.6 % (11.6-15.4); WBC 6.1 x10E3/uL (3.4-10.8)
--- NOTE | 2022-04-13 15:04 | NUR ---
Nursing Progress Note: Problem: Pt. was admitted from [facility] Pt. is on a 5150 for DTS. Per 5150: Pt. made suicidal statements, and reported placing a knife to his neck and starting to stab himself in a suicide attempt. Pt. has a history of 3-5 past suicide attempts, the most recent was one month ago. Patient was discharged from [facility] on 04/03/22. Dx of psychosis, depression, suicidal ideation. Interventions: 1:1 assessment, therapeutic communication, encouraged pt to express his thoughts and feelings, active listening, ensured contract for safety, medication administration/education/monitoring, encouraged hydration/nutrition, encouraged pt to come to meals, monitored meal intake, provided direction, positive reinforcemetn, and maintained Q15 minute safety checks. Response: Pt initially refused to come to breakfast. Tray was brought to his room. Pt brought it back untouched stating that he wasn't hungry. Pt was cooperative with medications. A short while later, pt came out of his room and asked for his tray. Pt ate breakfast in the dining room. Pt ate 100% of his protein, 50% of his carbs, apple juiced, and drank 100% of his Ensure. At lunch, pt ate 25% of his carbs, 50% of his protein, and drank 100% of his Ensure. Pt reports not having a BM X 4 days, pt has not eaten much over the past 4 days. Pt refused prune juice or MOM, pt denies sx of constipation. Pt has a new order for Colace 100 mg PO BID. Pt has a flat affect. Pt rated his depression at a 6/10. Pt endorses passive SI. Pt denied AH/VH. Pt had labs drawn. Pt's lymph % was low at 12.1, his lymph # was low at 0.7, neut % elevated at 84, his absolute CD4 count was 357. His HIV lab result is pending. Plan: Crisis interruption, stabilization with medication adjustment, management and monitoring in a safe and therapeutic environment until stable. Patient has been referred to [facility].
[2022-04-13 19:48] VITALS: BP 80/53
[2022-04-13] MEDS: OLANZAPINE 5 MG TABLET PO SCH (20:14)
[2022-04-13] MEDS: docusate sod 100mg capsule PO SCH (20:14)
--- NOTE | 2022-04-14 05:04 | NUR ---
Nursing Progress Note: Problem: Pt. was admitted from [facility] Pt. is on a 5150 for DTS. Per 5150: Pt. made suicidal statements, and reported placing a knife to his neck and starting to stab himself in a suicide attempt. Pt. has a history of 3-5 past suicide attempts, the most recent was one month ago. Patient was discharged from [facility] on 04/03/22. Dx of psychosis, depression, suicidal ideation. Interventions: 1:1 assessment, therapeutic communication, encouraged pt to express his thoughts and feelings, active listening, ensured contract for safety, medication administration/education/monitoring, encouraged hydration/nutrition, encouraged pt to come to meals, monitored meal intake, provided direction, positive reinforcemetn, and maintained Q15 minute safety checks. Response: Patient was received sleeping at change of shift. Patient continued to sleep through out shift. Patient was awake and agrred to take night medications. Patient retuned to sleep after meds. Patient refused to participate in snack and participate with others. Plan: Crisis interruption, stabilization with medication adjustment, management and monitoring in a safe and therapeutic environment until stable. Patient has been referred to [facility].
[2022-04-14 07:32] VITALS: BP 93/54
[2022-04-14] MEDS: pantoprazole 40mg Tablet.DR PO SCH (08:31)
[2022-04-14] MEDS: ESCITALOPRAM OXALATE 5 MG TABLET PO SCH (08:31)
[2022-04-14] MEDS: OLANZapine 2.5MG tablet PO SCH (08:31)
[2022-04-14] MEDS: docusate sod 100mg capsule PO SCH ×2 (08:31→20:08)
[2022-04-14] MEDS: lactose-reduced food (Ensure Enlive) - 237ml bottle PO SCH ×3 (08:34→17:57)
--- NOTE | 2022-04-14 17:27 | NUR ---
Nursing Progress Note: Problem : Per 5150 Pt. reports recurring suicidal thoughts and was planning to commit suicide with a hand written note. Pt. makes multiple somatic complaints. Pt. reports of having a tape worm and recently losing 70lbs. Pt. reports he has a bug in his right ear, that this bone structure is changing, and that he has HIV. Pt. reports SI but states, "Not here though". Pt. reports he did have a plan to use a knife to cut himself. Pt. report previous suicide attempt attempting to cut himself 2 years ago. Pt. reports A/VH, reporting that he hears people talking in his head and images being projected and bright flashes. Pt. reports he does not have any goals or dreams because 6 years ago he quit working due to memory issues. Pt. stopped taking his medications in September 2021 because he felt they were not working. Interventions : Introduced self and established rapport, maintained a safe and supportive environment, ensured contract for safety, provided clear and simple instructions, provided active listening and positive encouragement, encouraged participation on the unit, provided medication education and encouraged compliance, and maintained Q 15min safety checks. Response : Patient slept until breakfast, but didnt want to get up and eat. He was reminded that hes in the hospital for a reason, and cant just lay around and not eat. He got up and went to dining room, but eats very little. Patient then went back to his room and isolated until lunch. Same process again, and he only eats a little bit. His affect remains flat and blunted. Patient is guarded and doesnt look at me. The only thing he will discuss is suicide, and how he has nothing to live for, but not the reasoning behind it. Plan : Pt. is not eating nor drinking and needs crisis intervention and medication titration. Pt. wants to go to the [facility] and working with for that.
[2022-04-14 19:00] VITALS: BP 90/57
[2022-04-14] MEDS: olanzapine 10mg tablet PO SCH (20:07)
[2022-04-14] MEDS: buPROPion SR 100mg tab PO SCH (20:08)
--- NOTE | 2022-04-15 04:41 | NUR ---
Nursing Progress Note: Problem : Per 5150 Pt. reports recurring suicidal thoughts and was planning to commit suicide with a hand written note. Pt. makes multiple somatic complaints. Pt. reports of having a tape worm and recently losing 70lbs. Pt. reports he has a bug in his right ear, that this bone structure is changing, and that he has HIV. Pt. reports SI but states, "Not here though". Pt. reports he did have a plan to use a knife to cut himself. Pt. report previous suicide attempt attempting to cut himself 2 years ago. Pt. reports A/VH, reporting that he hears people talking in his head and images being projected and bright flashes. Pt. reports he does not have any goals or dreams because 6 years ago he quit working due to memory issues. Pt. stopped taking his medications in September 2021 because he felt they were not working. Interventions : Introduced self and established rapport, maintained a safe and supportive environment, ensured contract for safety, provided clear and simple instructions, provided active listening and positive encouragement, encouraged participation on the unit, provided medication education and encouraged compliance, and maintained Q 15min safety checks. Response : Patient was recieved sleeping in bed. Patient continued to sleep and self isolate through out shift. Patient awakened to take night medications and went back to bed. Plan : Pt. is not eating nor drinking and needs crisis intervention and medication titration. Pt. wants to go to the [facility] and working with [facility] for that.
[2022-04-15 08:00] VITALS: BP 94/58
[2022-04-15] MEDS: lactose-reduced food (Ensure Enlive) - 237ml bottle PO SCH ×3 (08:15→17:26)
[2022-04-15] MEDS: buPROPion SR 100mg tab PO SCH ×2 (08:16→20:41)
[2022-04-15] MEDS: OLANZapine 2.5MG tablet PO SCH (08:16)
[2022-04-15] MEDS: docusate sod 100mg capsule PO SCH ×2 (08:16→20:41)
[2022-04-15] MEDS: ESCITALOPRAM OXALATE 5 MG TABLET PO SCH (08:16)
[2022-04-15] MEDS: pantoprazole 40mg Tablet.DR PO SCH (08:16)
--- NOTE | 2022-04-15 17:00 | NUR ---
Nursing Progress Note: Problem: Pt. was admitted from [facility] Pt. is on a 5150 for DTS. Per 5150: Pt. made suicidal statements, and reported placing a knife to his neck and starting to stab himself in a suicide attempt. Pt. has a history of 3-5 past suicide attempts, the most recent was one month ago. Patient was discharged from [facility] on 04/03/22. Per ER notes pt has Differential Dx of psychosis, depression, suicidal ideation. Interventions: Provide medication administration & medication management; Maintained a safe & supportive environment; Clear & simple instructions; Direction & encouragement regarding performance of ADLs; monitored behaviors & maintained clear boundaries; Patient physical assessment & 1:1 patient interview; Therapeutic conversation & active listening; Patient education & monitoring. Response: Received patient when he was woke up at 0750 to administer his 0800 medications. Patient reports during the patient interview Yes, I am feeling suicidal and I have a plan. Patient denied AH/VH at this time. Patient reports I dont know what Im going to do when I leave here, but I do have a knife to get sharpened. Patient also reports that he has had no bowel movement for 6 days. Offered the patient MOM or prune juice and he declined and said Ill wait, Im not eating very much. Informed the patient that I do not want him to get a bowel obstruction and he stated I usually dont go very often, especially when Im not eating. Patient self-isolated all morning, and declined offer for medication for anxiety. Patient declined to go to the Community Room for lunch and stayed in his room self-isolating the rest of the day. Patient was encouraged to come out of his room and join the others for football or crafts and patient declined. Also offered patient MOM or prune juice again at 1545 and patient declined the offer. Will continue to observe and monitor the patient closely at all times. Plan: Crisis interruption, stabilization with medication adjustment, management and monitoring in a safe and therapeutic environment until stable. Patient has been referred to [facility].
[2022-04-15 19:22] VITALS: BP 88/51
[2022-04-15] MEDS: olanzapine 10mg tablet PO SCH (20:41)
--- NOTE | 2022-04-16 00:04 | NUR ---
Nursing Progress Note: Problem: Pt. was admitted from [facility] Pt. is on a 5150 for DTS. Per 5150: Pt. made suicidal statements, and reported placing a knife to his neck and starting to stab himself in a suicide attempt. Pt. has a history of 3-5 past suicide attempts, the most recent was one month ago. Patient was discharged from [facility] on 04/03/22. Per ER notes pt has Differential Dx of psychosis, depression, suicidal ideation. Interventions: Provide medication administration & medication management; Maintained a safe & supportive environment; Clear & simple instructions; Direction & encouragement regarding performance of ADLs; monitored behaviors & maintained clear boundaries; Patient physical assessment & 1:1 patient interview; Therapeutic conversation & active listening; Patient education & monitoring. Response: Pt lying in bed in a dark room at start of shift. He says he still wants to commit suicide. When he gets home he will use a knife and cut his throat. He says he has not heard any voices today. At snack time pt was told there is a new rule and he must get up for snack. He got up went to the group room willingly without any questions. He returned to room immediately after eating snack. Took HS medications and went to sleep. Plan: Crisis interruption, stabilization with medication adjustment, management and monitoring in a safe and therapeutic environment until stable. Patient has been referred to [facility].
[2022-04-16 07:50] VITALS: BP 107/53
[2022-04-16 08:00] VITALS: BP 108/78
[2022-04-16] MEDS: lactose-reduced food (Ensure Enlive) - 237ml bottle PO SCH ×3 (08:00→18:03)
[2022-04-16] MEDS: buPROPion SR 100mg tab PO SCH ×2 (08:32→20:33)
[2022-04-16] MEDS: OLANZapine 2.5MG tablet PO SCH (08:32)
[2022-04-16] MEDS: docusate sod 100mg capsule PO SCH ×2 (08:32→20:33)
[2022-04-16] MEDS: ESCITALOPRAM OXALATE 5 MG TABLET PO SCH (08:32)
[2022-04-16] MEDS: pantoprazole 40mg Tablet.DR PO SCH (08:32)
[2022-04-16] MEDS: magnesium hydroxide 30ml (MOM) UD suspension PO PRN ×2 (08:40→20:33)
--- NOTE | 2022-04-16 16:53 | NUR ---
Nursing Progress Note: Problem: Pt. was admitted from [facility] Pt. is on a 5150 for DTS. Per 5150: Pt. made suicidal statements, and reported placing a knife to his neck and starting to stab himself in a suicide attempt. Pt. has a history of 3-5 past suicide attempts, the most recent was one month ago. Patient was discharged from [facility] on 04/03/22. Per ER notes patient has Differential Diagnosis: Psychosis, Depression, Suicidal Ideation. Interventions: Provide medication administration & medication management; Maintained a safe & supportive environment; Clear & simple instructions; Direction & encouragement regarding performance of ADLs; monitored behaviors & maintained clear boundaries; Patient physical assessment & 1:1 patient interview; Therapeutic conversation & active listening; Patient education & monitoring. Response: Patient slept until approximately 0745 when he was awakened and administered his 0800 medications. Patient took his medication without hesitation, and then was coaxed out of bed to come to the Community Room for breakfast. After 3 times that Crystal, PCT asked the patient to come to the Community Room for breakfast, patient got dressed and joined this Fee Clerk in the Community Room. Patient denied anxiety at this time but did inform Im just never hungry. Encouraged the patient to start getting up out of bed and to make an attempt to eat each meal, even if it is smaller amounts each time. Patient agreed he would make an effort to eat each meal. Patient reports I feel like Im going to cut myself right in the neck and kill myself. I dont feel like I have any reason to live. Informed the patient that each one of us, including his mother, really care about him and would never want to see him harm himself. I informed the patient that he is really important and he will find his place in this world and gain some experience including life experience, and challenged the patient to start thinking about his interests and what he might want to start thinking about as far as a job trade. Patient smiled briefly and continued to stare straight forward during the conversation with an occasional okay heard from him. Patient self-isolated in his room all day with the exception of mealtime, but did eat almost all of his meals at breakfast and lunch time. Will continue to monitor the patient closely. Plan: Crisis interruption, stabilization with medication adjustment, management and monitoring in a safe and therapeutic environment until stable. Patient has been referred to [facility].
[2022-04-16 19:31] LABS: ALANINE AMINOTRANSFERASE 12 U/L (12-78); ALBUMIN 3.7 G/DL (3.4-5.0); ALBUMIN/GLOBULIN RATIO 1.2 (1.1-1.5); ALKALINE PHOSPHATASE 70 IU/L (46-116); ANION GAP 7 (8-16); ASPARTATE AMINO TRANSFERASE 12 U/L (10-37); BILIRUBIN,TOTAL 0.4 MG/DL (0.1-1.0); BLOOD UREA NITROGEN 23 MG/DL (7-18); BUN/CREATININE RATIO 20.2 (5.4-32.0); CHLORIDE 106 MMOL/L (99-107); CREATININE 1.14 MG/DL (0.60-1.10); GLUCOSE 84 MG/DL (70-104); POTASSIUM 3.8 MMOL/L (3.5-5.1); SODIUM 143 MMOL/L (135-145); TOTAL CARBON DIOXIDE 29.7 MMOL/L (24-32); TOTAL PROTEIN 6.7 G/DL (6.4-8.2); eGFR 75 ML/MIN
[2022-04-16 20:00] VITALS: BP 86/51
[2022-04-16] MEDS: olanzapine 10mg tablet PO SCH (20:33)
--- NOTE | 2022-04-17 01:22 | NUR ---
Nursing Progress Note: Problem: Pt. was admitted from [facility] Pt. is on a 5150 for DTS. Per 5150: Pt. made suicidal statements, and reported placing a knife to his neck and starting to stab himself in a suicide attempt. Pt. has a history of 3-5 past suicide attempts, the most recent was one month ago. Patient was discharged from [facility] on 04/03/22. Per ER notes patient has Differential Diagnosis: Psychosis, Depression, Suicidal Ideation. Interventions: Provide medication administration & medication management; Maintained a safe & supportive environment; Clear & simple instructions; Direction & encouragement regarding performance of ADLs; monitored behaviors & maintained clear boundaries; Patient physical assessment & 1:1 patient interview; Therapeutic conversation & active listening; Patient education & monitoring. Response: Patient was lying in bed quietly in the dark at change of shift. Met with RN for 1:1 assessment at the bedside. He presents with a flat affect, does not make eye contact. He responds with one to two word responses, no spontaneous conversation. Denies S/I not right now. He had MOM this AM, but has not yet had a BM, so administered a second dose, as KUB showed moderate constipation. Encourage patient to drink water and walk the halls. He reluctantly got out of bed and walked the full length of the hallway and back. When asked if hed walk with this RN the length of the marshall again, he shook his head no and went to bed. Compliant with medications, and denies AE's. Plan: Crisis interruption, stabilization with medication adjustment, management and monitoring in a safe and therapeutic environment until stable. Patient has been referred to [facility].
--- NOTE | 2022-04-17 07:29 | NUR ---
Reassessment: pt continues on Regular diet, has had avg 41% of last 3 meals though mostly 0-25% prior to that. Avg intake 65% of ONS and will participate in snacks per documentation. Still only partially meeting needs. Per PA note, pt states that he always feels full and also declined a feeding tube; KUB 04/16 showed moderate constipation. Pt is receiving routine and PRN bowel care. Hopeful that PO may improve once constipation resolves. No change to recommendations at this time, will continue to monitor. Recs: 1. Continue Regular diet; encourage PO 2. Ensure Enlive TID; substitute Ensure Plus High Protein TID while out of Ensure Enlives 3. Routine bowel care 4. Weekly wts Addendum: 04/17/22 at [address] Amended: Links added.
[2022-04-17 07:32] VITALS: BP 105/70
[2022-04-17] MEDS: lactose-reduced food (Ensure Enlive) - 237ml bottle PO SCH ×3 (07:51→17:18)
[2022-04-17] MEDS: docusate sod 100mg capsule PO SCH ×2 (08:01→20:21)
[2022-04-17] MEDS: OLANZapine 2.5MG tablet PO SCH (08:02)
[2022-04-17] MEDS: ESCITALOPRAM OXALATE 5 MG TABLET PO SCH (08:02)
[2022-04-17] MEDS: buPROPion SR 100mg tab PO SCH ×2 (08:02→20:21)
[2022-04-17] MEDS: pantoprazole 40mg Tablet.DR PO SCH (08:02)
--- NOTE | 2022-04-17 12:01 | NUR ---
Met with Yasmany to check in with him. He reported he still wants to go to [facility], however, he does not feel like he is ready to interview. He reported he is still feeling depressed. He reported he had suicidal ideation this morning with a plan to cut his wrist. Mood and affect were depressed. He made minimal eye contact. Hygiene was poor. Encouraged him to shower today. Encouraged him to attend groups and informed him he will need to attend groups while at [facility]. Asked him to attend the afternoon group today. DAVID Alfaro
--- NOTE | 2022-04-17 16:58 | NUR ---
Nursing Progress Note: Problem: Pt. was admitted from [facility] Pt. is on a 5150 for DTS. Per 5150: Pt. made suicidal statements, and reported placing a knife to his neck and starting to stab himself in a suicide attempt. Pt. has a history of 3-5 past suicide attempts, the most recent was one month ago. Patient was discharged from [facility] on 04/03/22. Per ER notes patient has Differential Diagnosis: Psychosis, Depression, Suicidal Ideation. Interventions: Provide medication administration & medication management; Maintained a safe & supportive environment; Clear & simple instructions; Direction & encouragement regarding performance of ADLs; monitored behaviors & maintained clear boundaries; Patient physical assessment & 1:1 patient interview; Therapeutic conversation & active listening; Patient education & monitoring. Response: Patient was woke up at approximately 0810 and ambulated to the Community Room for breakfast. Patient reports during 1:1 Interview that he is feeling suicidal today, although he has not formulated a plan at this time. Discussed patients possible discharge plan to [facility] when MD agrees the patient is ready for an interview and transfer. Patient stated Im not ready to go there. I really do want to go there but I know I am not ready to go there for at least 5 days or so. Informed the patient that Camron or Renata will discuss this with you before they schedule the interview. Patient appears extremely fragile, stares straight ahead and rarely makes eye contact with this Mobility Developer, despite sitting across from him in the chair in his room or next to him in the Community Room. Patients appetite is slowly improving and he is making a big effort to eat as well as drink the Ensure on each of his meal trays. Invited the patient to the Group Meeting this afternoon but he did not attend. Plan: Crisis interruption, stabilization with medication adjustment, management and monitoring in a safe and therapeutic environment until stable. Patient has been referred to [facility].
[2022-04-17 20:00] VITALS: BP 94/55
[2022-04-17] MEDS: olanzapine 10mg tablet PO SCH (20:21)
--- NOTE | 2022-04-17 23:57 | NUR ---
Nursing Progress Note: Problem: Pt. was admitted from [facility] Pt. is on a 5150 for DTS. Per 5150: Pt. made suicidal statements, and reported placing a knife to his neck and starting to stab himself in a suicide attempt. Pt. has a history of 3-5 past suicide attempts, the most recent was one month ago. Patient was discharged from [facility] on 04/03/22. Per ER notes patient has Differential Diagnosis: Psychosis, Depression, Suicidal Ideation. Interventions: Provide medication administration & medication management; Maintained a safe & supportive environment; Clear & simple instructions; Direction & encouragement regarding performance of ADLs; monitored behaviors & maintained clear boundaries; Patient physical assessment & 1:1 patient interview; Therapeutic conversation & active listening; Patient education & monitoring. Response: Patient was laying in bed at shift change. Patient had blunt expression with minimal answers to questions. The patient reported being depressed and not wanting to harm himself at this time. The patient states that he drank 100% of his Ensure at dinner time. Patient self isolated to his room the entire shift. Patient refused snack and took evening meds w/o complications. Patient went to sleep directly after med pass. Plan: Crisis interruption, stabilization with medication adjustment, management and monitoring in a safe and therapeutic environment until stable. Patient has been referred to [facility].
[2022-04-18 07:15] VITALS: BP 101/58
[2022-04-18] MEDS: lactose-reduced food (Ensure Enlive) - 237ml bottle PO SCH ×3 (08:00→18:00)
[2022-04-18] MEDS: pantoprazole 40mg Tablet.DR PO SCH (08:30)
[2022-04-18] MEDS: docusate sod 100mg capsule PO SCH ×2 (08:30→20:09)
[2022-04-18] MEDS: ESCITALOPRAM OXALATE 5 MG TABLET PO SCH (08:30)
[2022-04-18] MEDS: buPROPion SR 100mg tab PO SCH ×2 (08:31→20:09)
[2022-04-18] MEDS: OLANZapine 2.5MG tablet PO SCH (08:31)
--- NOTE | 2022-04-18 17:35 | NUR ---
Nursing Progress Note: Problem: Pt. was admitted from [facility] Pt. is on a 5150 for DTS. Per 5150: Pt. made suicidal statements, and reported placing a knife to his neck and starting to stab himself in a suicide attempt. Pt. has a history of 3-5 past suicide attempts, the most recent was one month ago. Patient was discharged from [facility] on 04/03/22. Per ER notes patient has Differential Diagnosis: Psychosis, Depression, Suicidal Ideation. Interventions: Provide medication administration & medication management; Maintained a safe & supportive environment; Clear & simple instructions; Direction & encouragement regarding performance of ADLs; monitored behaviors & maintained clear boundaries; Patient physical assessment & 1:1 patient interview; Therapeutic conversation & active listening; Patient education & monitoring. Response: Received patient asleep at change of shift. Patient would not get up and eat his breakfast, nor his lunch. Patient gives yes and no answers and affect is flat. Patient stayed in bed, self-isolating all day. Will monitor eating for dinner. Plan: Crisis interruption, stabilization with medication adjustment, management and monitoring in a safe and therapeutic environment until stable. Patient has been referred to [facility].
[2022-04-18 19:07] LABS: HIV-1 RNA by PCR <20 copies/mL (.)
[2022-04-18 20:00] VITALS: BP 100/68
[2022-04-18] MEDS: olanzapine 10mg tablet PO SCH (20:09)
--- NOTE | 2022-04-18 23:52 | NUR ---
Nursing Progress Note: Problem: Pt. was admitted from [facility] Pt. is on a 5150 for DTS. Per 5150: Pt. made suicidal statements, and reported placing a knife to his neck and starting to stab himself in a suicide attempt. Pt. has a history of 3-5 past suicide attempts, the most recent was one month ago. Patient was discharged from [facility] on 04/03/22. Per ER notes patient has Differential Diagnosis: Psychosis, Depression, Suicidal Ideation. Interventions: Provide medication administration & medication management; Maintained a safe & supportive environment; Clear & simple instructions; Direction & encouragement regarding performance of ADLs; monitored behaviors & maintained clear boundaries; Patient physical assessment & 1:1 patient interview; Therapeutic conversation & active listening; Patient education & monitoring. Response: Patient laying down in bed at shift change. Patient self isolated to room all evening and did not leave his room or bed. The pt reports not feeling SI at this time but does feel depressed and does not want to do anything but sleep. Patient reports drinking 100% Ensure at dinner time. The patient made short minimal responses to questions and refused snack. Patient took all evening meds w/o complications. Plan: Crisis interruption, stabilization with medication adjustment, management and monitoring in a safe and therapeutic environment until stable. Patient has been referred to [facility].
[2022-04-19] MEDS ORDERED: buPROPion SR 150mg tablet PO SCH (07:30)
[2022-04-19] MEDS: docusate sod 100mg capsule PO SCH ×2 (07:41→20:20)
[2022-04-19] MEDS: OLANZapine 2.5MG tablet PO SCH (07:41)
[2022-04-19] MEDS: pantoprazole 40mg Tablet.DR PO SCH (07:42)
[2022-04-19] MEDS: buPROPion 75mg tablet PO SCH ×2 (07:42→12:56)
[2022-04-19] MEDS: ESCITALOPRAM OXALATE 5 MG TABLET PO SCH (07:43)
[2022-04-19] MEDS: lactose-reduced food (Ensure Enlive) - 237ml bottle PO SCH ×3 (08:19→18:04)
[2022-04-19 09:09] VITALS: BP 89/60
[2022-04-19] MEDS: magnesium hydroxide 30ml (MOM) UD suspension PO PRN (09:27)
--- NOTE | 2022-04-19 17:22 | NUR ---
Nursing Progress Note: Problem: Pt. was admitted from [facility] Pt. is on a 5150 for DTS. Per 5150: Pt. made suicidal statements, and reported placing a knife to his neck and starting to stab himself in a suicide attempt. Pt. has a history of 3-5 past suicide attempts, the most recent was one month ago. Patient was discharged from [facility] on 04/03/22. Per ER notes patient has Differential Diagnosis: Psychosis, Depression, Suicidal Ideation. Interventions: Provide medication administration & medication management; Maintained a safe & supportive environment; Clear & simple instructions; Direction & encouragement regarding performance of ADLs; monitored behaviors & maintained clear boundaries; Patient physical assessment & 1:1 patient interview; Therapeutic conversation & active listening; Patient education & monitoring. Response: Received patient asleep at change of shift. Patient took morning medications. Stated he felt suicidal. Patient contracts for safety and will notify staff if he gets suicidal. He has not had a BM today. PRN MOM was administered. Patient slept until breakfast arrived. He went to the dining area and ate all of his meal and Ensure. Patient went back to room where he laid in bed until lunch. He took his scheduled medication and was prompted to eat lunch in the dining area. He ate 25 percent of meal and 100 percent of Ensure. When snack was offered patient stated he is not hungry and continued to lay in bed. Since given the MOM patient still has not had a BM. Patient has isolated to his room most of the day, except for meals. Will encourage patient to go to community room and eat dinner tonight Plan: Crisis interruption, stabilization with medication adjustment, management and monitoring in a safe and therapeutic environment until stable. Patient has been referred to [facility].
[2022-04-19 19:00] VITALS: BP 98/62
[2022-04-19] MEDS: olanzapine 10mg tablet PO SCH (20:20)
[2022-04-19] MEDS: mirtazapine 15mg tablet PO SCH (20:20)
--- NOTE | 2022-04-20 00:22 | NUR ---
Nursing Progress Note: Problem: Pt. was admitted from [facility] Pt. is on a 5150 for DTS. Per 5150: Pt. made suicidal statements, and reported placing a knife to his neck and starting to stab himself in a suicide attempt. Pt. has a history of 3-5 past suicide attempts, the most recent was one month ago. Patient was discharged from [facility] on 04/03/22. Per ER notes patient has Differential Diagnosis: Psychosis, Depression, Suicidal Ideation. Interventions: Provide medication administration & medication management; Maintained a safe & supportive environment; Clear & simple instructions; Direction & encouragement regarding performance of ADLs; monitored behaviors & maintained clear boundaries; Patient physical assessment & 1:1 patient interview; Therapeutic conversation & active listening; Patient education & monitoring. Response: Patient laying in bed at shift change. Patient reports being depressed, has no self interest. Patient exclaims that he doesn't care if his stomach hurts, has no wants or needs and just wants to sleep. Patient denies AV/H HI. The patient self isolated to room and did not get up.Encouraged patient to get out of room which had little effect. The patient refused snack. Patient took all evening meds w/o complications and went to sleep directly after med pass. Plan: Crisis interruption, stabilization with medication adjustment, management and monitoring in a safe and therapeutic environment until stable. Patient has been referred to [facility].
[2022-04-20 07:48] VITALS: BP 100/63
[2022-04-20] MEDS: lactose-reduced food (Ensure Enlive) - 237ml bottle PO SCH ×3 (08:00→18:00)
[2022-04-20] MEDS: pantoprazole 40mg Tablet.DR PO SCH (08:13)
[2022-04-20] MEDS: OLANZapine 2.5MG tablet PO SCH (08:13)
[2022-04-20] MEDS: ESCITALOPRAM OXALATE 5 MG TABLET PO SCH (08:13)
[2022-04-20] MEDS: docusate sod 100mg capsule PO SCH ×2 (08:13→20:16)
[2022-04-20] MEDS: buPROPion 75mg tablet PO SCH ×2 (08:13→13:44)
--- NOTE | 2022-04-20 16:13 | NUR ---
Nursing Progress Note: Problem: Pt. was admitted from [facility] Pt. is on a 5150 for DTS. Per 5150: Pt. made suicidal statements, and reported placing a knife to his neck and starting to stab himself in a suicide attempt. Pt. has a history of 3-5 past suicide attempts, the most recent was one month ago. Patient was discharged from [facility] on 04/03/22. Per ER notes patient has Differential Diagnosis: Psychosis, Depression, Suicidal Ideation. Interventions: Provide medication administration & medication management; Maintained a safe & supportive environment; Clear & simple instructions; Direction & encouragement regarding performance of ADLs; monitored behaviors & maintained clear boundaries; Patient physical assessment & 1:1 patient interview; Therapeutic conversation & active listening; Patient education & monitoring. Response: Received patient asleep in bed and in no distress at change of shift. He woke and was cooperative with vitals and returned to sleep. Patient took morning medications, and ate most of breakfast. Pt is guarded and isolative, spending most of the day in bed, I like to be by myself. Pt denies SI/ HI, AV/Hs at this time. Pt reports not having a BM for five days, but EMR shows he had BM 2 days ago. Pt offered MOM but he did not want it. Pt observed while he shaved and was appreciative. Pt appears depressed with restricted affect. Overall pleasant and cooperative but guarded. Plan: Crisis interruption, stabilization with medication adjustment, management and monitoring in a safe and therapeutic environment until stable. Patient has been referred to [facility].
[2022-04-20 19:00] VITALS: BP 83/44
[2022-04-20] MEDS: olanzapine 10mg tablet PO SCH (20:16)
[2022-04-20] MEDS: mirtazapine 15mg tablet PO SCH (20:16)
--- NOTE | 2022-04-21 05:08 | NUR ---
Nursing Progress Note: Problem: Pt. was admitted from [facility] Pt. is on a 5150 for DTS. Per 5150: Pt. made suicidal statements, and reported placing a knife to his neck and starting to stab himself in a suicide attempt. Pt. has a history of 3-5 past suicide attempts, the most recent was one month ago. Patient was discharged from [facility] on 04/03/22. Per ER notes patient has Differential Diagnosis: Psychosis, Depression, and Suicidal Ideation. Interventions: Provide medication administration and medication management; Maintained a safe and supportive environment; Clear and simple instructions; Direction and encouragement regarding performance of ADLs; monitored behaviors and maintained clear boundaries; Patient physical assessment and 1:1 patient interview; Therapeutic conversation and active listening; Patient education and monitoring. Response: Pt resting in bed at start of shift. 1:1 assessment at bedside with minimal response. Pt denies SI/AH/VH. When asked how he was doing he states Im fine. Pt consumed 100% of his Ensure. All HS meds administered. Pt did not have a snack and isolates himself to room. Pt states he had a BM today and was constipated. Pt slept through the night. Plan: Crisis interruption, stabilization with medication adjustment, management and monitoring in a safe and therapeutic environment until stable. Patient has been referred to [facility].
[2022-04-21] MEDS: docusate sod 100mg capsule PO SCH ×2 (07:35→20:35)
[2022-04-21] MEDS: pantoprazole 40mg Tablet.DR PO SCH (07:35)
[2022-04-21] MEDS: buPROPion 75mg tablet PO SCH ×2 (07:35→13:10)
[2022-04-21] MEDS: ESCITALOPRAM OXALATE 5 MG TABLET PO SCH (07:36)
[2022-04-21] MEDS: OLANZapine 2.5MG tablet PO SCH (07:36)
[2022-04-21 08:06] VITALS: BP 87/57
[2022-04-21] MEDS: lactose-reduced food (Ensure Enlive) - 237ml bottle PO SCH ×3 (08:19→17:35)
--- NOTE | 2022-04-21 10:26 | NUR ---
Reassessment: PO intake slightly fluctuates however overall PO intake has improved, documented with mostly 75-100% PO intake with refusal of two meals since 04/18. Pt continues with an Ensure TID of which pt mostly with 100% PO intake of. IF pt continues with current trends in meal PO intake ONS will not be warranted. [facility] 04/20, receiving routine and PRN bowel care. No further nutrition intervention implemented at this time. Will continue to follow. Recommendations: 1. Continue regular diet; encourage PO 2. Ensure Enlive TID; substitute Ensure Plus High Protein TID while out of Ensure Enlive; discontinue/decrease ONS frequency if pt continues with adequate PO intake of meals 3. Routine bowel care; utilize PRN 4. Weekly scaled wts Addendum: 04/21/22 at [address] Amended: Links added.
--- NOTE | 2022-04-21 15:06 | NUR ---
Nursing Progress Note: Problem: Pt. was admitted from [facility] Pt. is on a 5150 for DTS. Per 5150: Pt. made suicidal statements, and reported placing a knife to his neck and starting to stab himself in a suicide attempt. Pt. has a history of 3-5 past suicide attempts, the most recent was one month ago. Patient was discharged from [facility] on 04/03/22. Per ER notes patient has Differential Diagnosis: Psychosis, Depression, Suicidal Ideation. Interventions: Provide medication administration & medication management; Maintained a safe & supportive environment; Clear & simple instructions; Direction & encouragement regarding performance of ADLs; monitored behaviors & maintained clear boundaries; Patient physical assessment & 1:1 patient interview; Therapeutic conversation & active listening; Patient education & monitoring. Response: Patient was asleep at change of shift. RN awoke patient for meds and breakfast. Patient did get up and eat all his breakfast and then drank his protein shake. Patient was also up for group today. Patient states he is suicidal. Patient does look very depressed with a flat affect. States he feels hopeless and helpless. Patient states he was hearing voices earlier but could not tell RN what they were saying. Plan: Crisis interruption, stabilization with medication adjustment, management and monitoring in a safe and therapeutic environment until stable. Patient has been referred to [facility].
[2022-04-21 19:00] VITALS: BP 89/47
[2022-04-21 19:15] VITALS: BP 94/53
[2022-04-21] MEDS: mirtazapine 15mg tablet PO SCH (20:35)
[2022-04-21] MEDS: olanzapine 10mg tablet PO SCH (20:35)
--- NOTE | 2022-04-22 04:06 | NUR ---
Nursing Progress Note: Problem: Pt. was admitted from [facility] Pt. is on a 5150 for DTS. Per 5150: Pt. made suicidal statements, and reported placing a knife to his neck and starting to stab himself in a suicide attempt. Pt. has a history of 3-5 past suicide attempts, the most recent was one month ago. Patient was discharged from [facility] on 04/03/22. Per ER notes patient has Differential Diagnosis: Psychosis, Depression, and Suicidal Ideation. Interventions: Provide medication administration and medication management; Maintained a safe and supportive environment; Clear and simple instructions; Direction and encouragement regarding performance of ADLs; monitored behaviors and maintained clear boundaries; Patient physical assessment and 1:1 patient interview; Therapeutic conversation and active listening; Patient education and monitoring. Maintained Q 15min safety checks. Response: Pt resting in bed at start of shift. Pt sat up on bed for 1:1 assessment at bedside. Pt denies SI/AH/VH. When asked how he was doing he states feeling okay. Pt states he is feeling depressed but does not know why. Pt consumed 100% of his Ensure. All HS meds administered. Pt had a snack and went back in his room to rest. Pt states he did not have a BM today. Pt slept through the night. Plan: Crisis interruption, stabilization with medication adjustment, management and monitoring in a safe and therapeutic environment until stable. Patient has been referred to [facility].
[2022-04-22 07:52] VITALS: BP 92/51
[2022-04-22] MEDS: docusate sod 100mg capsule PO SCH ×2 (08:39→20:34)
[2022-04-22] MEDS: pantoprazole 40mg Tablet.DR PO SCH (08:39)
[2022-04-22] MEDS: buPROPion 75mg tablet PO SCH ×2 (08:39→12:52)
[2022-04-22] MEDS: OLANZapine 2.5MG tablet PO SCH (08:39)
[2022-04-22] MEDS: ESCITALOPRAM OXALATE 5 MG TABLET PO SCH (08:40)
[2022-04-22] MEDS: lactose-reduced food (Ensure Enlive) - 237ml bottle PO SCH ×3 (08:40→18:09)
--- NOTE | 2022-04-22 15:06 | NUR ---
Nursing Progress Note: Problem: Pt. was admitted from [facility] Pt. is on a 5150 for DTS. Per 5150: Pt. made suicidal statements, and reported placing a knife to his neck and starting to stab himself in a suicide attempt. Pt. has a history of 3-5 past suicide attempts, the most recent was one month ago. Patient was discharged from [facility] on 04/03/22. Per ER notes patient has Differential Diagnosis: Psychosis, Depression, Suicidal Ideation. Interventions: Provide medication administration & medication management; Maintained a safe & supportive environment; Clear & simple instructions; Direction & encouragement regarding performance of ADLs; monitored behaviors & maintained clear boundaries; Patient physical assessment & 1:1 patient interview; Therapeutic conversation & active listening; Patient education & monitoring. Response: Patient was asleep at change of shift. RN awoke patient for medication. Patient states he is feeling suicidal. Patient states he is depressed. Patient spends most of his time sleeping. States he feels hopeless and helpless. Patient denies hearing voices today. Plan: Crisis interruption, stabilization with medication adjustment, management and monitoring in a safe and therapeutic environment until stable. Patient has been referred to [facility].
[2022-04-22 19:40] VITALS: BP 94/56
[2022-04-22 19:41] VITALS: BP 94/56
[2022-04-22] MEDS: mirtazapine 15mg tablet PO SCH (20:34)
[2022-04-22] MEDS: OLANZAPINE 5 MG TABLET PO SCH (20:34)
--- NOTE | 2022-04-22 21:58 | NUR ---
Nursing Progress Note: Problem: Pt. was admitted from [facility] Pt. is on a 5150 for DTS. Per 5150: Pt. made suicidal statements, and reported placing a knife to his neck and starting to stab himself in a suicide attempt. Pt. has a history of 3-5 past suicide attempts, the most recent was one month ago. Patient was discharged from [facility] on 04/03/22. Per ER notes patient has Differential Diagnosis: Psychosis, Depression, Suicidal Ideation. Interventions: Provide medication administration & medication management; Maintained a safe & supportive environment; Clear & simple instructions; Direction & encouragement regarding performance of ADLs; monitored behaviors & maintained clear boundaries; Patient physical assessment & 1:1 patient interview; Therapeutic conversation & active listening; Patient education & monitoring. Response: Pt was sitting quietly in his room at change of shift. Pt gives minimal response to questions and reports no needs. Pt states his day was "good", denies s/i, but is guarded. Pt went to the group room for snacks and was smiling and pleasant. Pt returned to his room after snacks. Pt took HS meds and went to bed. Plan: Crisis interruption, stabilization with medication adjustment, management and monitoring in a safe and therapeutic environment until stable. Patient has been referred to [facility].
[2022-04-23] MEDS: buPROPion 75mg tablet PO SCH ×2 (07:30→13:09)
[2022-04-23 08:00] VITALS: BP 105/53
[2022-04-23] MEDS: lactose-reduced food (Ensure Enlive) - 237ml bottle PO SCH ×3 (08:00→18:00)
[2022-04-23] MEDS: docusate sod 100mg capsule PO SCH ×2 (08:00→20:26)
[2022-04-23] MEDS: pantoprazole 40mg Tablet.DR PO SCH (08:00)
[2022-04-23] MEDS: ESCITALOPRAM OXALATE 5 MG TABLET PO SCH (08:00)
--- NOTE | 2022-04-23 14:55 | NUR ---
Nursing Progress Note: Problem: Pt. was admitted from [facility] Pt. is on a 5150 for DTS. Per 5150: Pt. made suicidal statements, and reported placing a knife to his neck and starting to stab himself in a suicide attempt. Pt. has a history of 3-5 past suicide attempts, the most recent was one month ago. Patient was discharged from [facility] on 04/03/22. Per ER notes patient has Differential Diagnosis: Psychosis, Depression, Suicidal Ideation. Interventions: Provide medication administration & medication management; Maintained a safe & supportive environment; Clear & simple instructions; Direction & encouragement regarding performance of ADLs; monitored behaviors & maintained clear boundaries; Patient physical assessment & 1:1 patient interview; Therapeutic conversation & active listening; Patient education & monitoring. Response: Patient was asleep at change of shift and up for breakfast. Patient states he denies feeling suicidal. Patient states he is depression is better. Patient still spends most of his time sleeping. Patient denies hearing voices today. Plan: Crisis interruption, stabilization with medication adjustment, management and monitoring in a safe and therapeutic environment until stable. Patient has been referred to [facility].
[2022-04-23 19:57] VITALS: BP 96/54
[2022-04-23] MEDS: magnesium hydroxide 30ml (MOM) UD suspension PO PRN (20:22)
[2022-04-23] MEDS: mirtazapine 15mg tablet PO SCH (20:26)
[2022-04-23] MEDS: OLANZAPINE 5 MG TABLET PO SCH (20:26)
--- NOTE | 2022-04-23 22:08 | NUR ---
Nursing Progress Note: Problem: Pt. was admitted from [facility] Pt. is on a 5150 for DTS. Per 5150: Pt. made suicidal statements, and reported placing a knife to his neck and starting to stab himself in a suicide attempt. Pt. has a history of 3-5 past suicide attempts, the most recent was one month ago. Patient was discharged from [facility] on 04/03/22. Per ER notes patient has Differential Diagnosis: Psychosis, Depression, Suicidal Ideation. Interventions: Provide medication administration & medication management; Maintained a safe & supportive environment; Clear & simple instructions; Direction & encouragement regarding performance of ADLs; monitored behaviors & maintained clear boundaries; Patient physical assessment & 1:1 patient interview; Therapeutic conversation & active listening; Patient education & monitoring. Response: Pt was sitting quietly in bed at change of shift. Pt is guarded during 1:1 assessment and denies s/i, denies depression stating he is hoping to get accepted at the [facility]. Pt states he is ready to go and feels like his is doing better. Pt reports constipation and initially refused any prns but did decide to take prn Milk of Mag with HS meds. Pt was encouraged to come out of his room for snacks but remained in his bed. Pt went to sleep after taking HS meds. Plan: Crisis interruption, stabilization with medication adjustment, management and monitoring in a safe and therapeutic environment until stable. Patient has been referred to [facility].
[2022-04-24] MEDS: lactose-reduced food (Ensure Enlive) - 237ml bottle PO SCH ×3 (08:00→18:00)
[2022-04-24] MEDS: docusate sod 100mg capsule PO SCH ×2 (08:02→20:04)
[2022-04-24] MEDS: pantoprazole 40mg Tablet.DR PO SCH (08:02)
[2022-04-24] MEDS: buPROPion 75mg tablet PO SCH ×2 (08:02→12:53)
[2022-04-24] MEDS: ESCITALOPRAM OXALATE 5 MG TABLET PO SCH (08:02)
[2022-04-24 08:30] VITALS: BP 96/59
--- NOTE | 2022-04-24 10:54 | NUR ---
[facility] There currently are not any beds at [facility]. They expect they will have a bed open on 05/13/22. [facility] still needs to interview Mir. Requested an interview. DAVID Alfaro
--- NOTE | 2022-04-24 11:29 | NUR ---
[facility] INTERVIEW 04/25/22 AT 2 PM DAVID Alfaro
--- NOTE | 2022-04-24 15:50 | NUR ---
Therapeutic group DESCRIPTION Daily therapeutic groups support [facility] crisis-recovery environment. Topic: psychosocial educationgestures of gratitude and thanks release dopamine, which allows a feeling of well-being, pleasure, accomplishment. Activity: requested by clients -- thank you for kitchen staff. Discussion of supportive but not problem solving peer conversation (V-validation, A-acknowledgement, R-refer). INTERVENTION Therapeutic communication, peer support, validation by peers, coping skills and psychosocial education. Secondarily: intellectual and physical activity, peer, and staff companionship, alleviating and discouraging isolation. RESPONSE Client spoke few words, but made a beautiful drawing of an owl to put in the gratitude card made by the group. 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 TREATMENT Until stable, client requires time in a safe and therapeutic environment employing multidisciplinary treatments, including therapeutic groups.
--- NOTE | 2022-04-24 17:03 | NUR ---
Nursing Progress Note: Yasmany Spaulding Problem: Pt. was admitted from [facility] Pt. is on a 5150 for DTS. Per 5150: Pt. made suicidal statements, and reported placing a knife to his neck and starting to stab himself in a suicide attempt. Pt. has a history of 3-5 past suicide attempts, the most recent was one month ago. Patient was discharged from [facility] on 04/03/22. Dx of psychosis, depression, suicidal ideation. Current on voluntary Interventions: Medication administration, 1:1 MH assessment, maintained a safe and supportive environment, provided clear and simple instructions, provided encouragement regarding performance of ADLs, monitored behaviors and maintained clear boundaries, maintained Q15 minute safety checks. Response: Received pt. sleeping in his room, he awoke for medications which he took without hesitation. Pt. denies SI, Hi, AH, VH and reports feeling good He did eat his meals in the main dining area with cohorts, and keeps to himself. Pt. was open to taking a shower when offered and requires prompting to attend snack. Pt. isolates in his room, has a timid voice, presents as fatigued sleeping often. Pt. has fair hygiene today, short hair, and wearing unit scrubs. Plan: Crisis interruption, stabilization with medication adjustment, management and monitoring in a safe and therapeutic environment until stable. Patient has been referred to [facility].
[2022-04-24 19:32] VITALS: BP 131/70
[2022-04-24] MEDS: OLANZAPINE 5 MG TABLET PO SCH (20:04)
[2022-04-24] MEDS: mirtazapine 15mg tablet PO SCH (20:04)
--- NOTE | 2022-04-24 20:39 | NUR ---
Nursing Progress Note: Yasmany Spaulding Problem: Pt. was admitted from [facility] Pt. is on a 5150 for DTS. Per 5150: Pt. made suicidal statements, and reported placing a knife to his neck and starting to stab himself in a suicide attempt. Pt. has a history of 3-5 past suicide attempts, the most recent was one month ago. Patient was discharged from [facility] on 04/03/22. Dx of psychosis, depression, suicidal ideation. Current on voluntary Interventions: Medication administration, 1:1 MH assessment, maintained a safe and supportive environment, provided clear and simple instructions, provided encouragement regarding performance of ADLs, monitored behaviors and maintained clear boundaries, maintained Q15 minute safety checks. Response: Pt was in his room at change of shift napping. Pt is guarded, gives minimal response to questions. Pt reports his depression is 2/10 and denies s/i, denies a/vh. Pt took HS meds, reports he had a large bm today. Pt declined a snack and isolates to his room this shift. Plan: Crisis interruption, stabilization with medication adjustment, management and monitoring in a safe and therapeutic environment until stable. Patient has been referred to [facility].
[2022-04-25 07:26] VITALS: BP 96/61
[2022-04-25] MEDS: ESCITALOPRAM OXALATE 5 MG TABLET PO SCH (07:48)
[2022-04-25] MEDS: buPROPion 75mg tablet PO SCH ×2 (07:48→12:39)
[2022-04-25] MEDS: pantoprazole 40mg Tablet.DR PO SCH (07:48)
[2022-04-25] MEDS: docusate sod 100mg capsule PO SCH ×2 (07:48→20:15)
[2022-04-25] MEDS: lactose-reduced food (Ensure Enlive) - 237ml bottle PO SCH ×3 (08:25→18:00)
--- NOTE | 2022-04-25 16:44 | NUR ---
Nursing Progress Note: Yasmany Spaulding Problem: Pt. was admitted from [facility] Pt. is on a 5150 for DTS. Per 5150: Pt. made suicidal statements, and reported placing a knife to his neck and starting to stab himself in a suicide attempt. Pt. has a history of 3-5 past suicide attempts, the most recent was one month ago. Patient was discharged from [facility] on 04/03/22. Dx of psychosis, depression, suicidal ideation. Current on voluntary Interventions: Medication administration, 1:1 MH assessment, maintained a safe and supportive environment, provided clear and simple instructions, provided encouragement regarding performance of ADLs, monitored behaviors and maintained clear boundaries, maintained Q15 minute safety checks. Response: Received pt. sleeping in his room, he awoke for medications which he took without hesitation. Pt. endorses SI stating yes, and if I leave here Ill go to my storage unit where I have knives, and do it Pt. reported feeling depressed he denies HI, AV, HV and reports his DC plan is to go to [facility] Pt. isolated in his room throughout the shift, and presents as downcasted. He did attend all meals in the dining room but often sits alone in a chair with his susana in his lap. Pt. was encouraged to take a shower and was willing to do so. Pt. presents with fair hygiene, un combed hair, and wears unit scrubs. Plan: Crisis interruption, stabilization with medication adjustment, management and monitoring in a safe and therapeutic environment until stable. Patient has been referred to [facility].
--- NOTE | 2022-04-25 16:50 | NUR ---
ACCEPTED AT [facility] Mir was interviewed by [facility] staff today and has been accepted. It is unknown when a bed will be available for him. DAVID Alfaro
[2022-04-25 20:00] VITALS: BP 131/66
[2022-04-25] MEDS: mirtazapine 15mg tablet PO SCH (20:15)
[2022-04-25] MEDS: OLANZAPINE 5 MG TABLET PO SCH (20:15)
--- NOTE | 2022-04-26 05:27 | NUR ---
Nursing Progress Note: Yasmany Spaulding Problem: Pt. was admitted from [facility] Pt. is on a 5150 for DTS. Per 5150: Pt. made suicidal statements, and reported placing a knife to his neck and starting to stab himself in a suicide attempt. Pt. has a history of 3-5 past suicide attempts, the most recent was one month ago. Patient was discharged from [facility] on 04/03/22. Dx of psychosis, depression, suicidal ideation. Current on voluntary Interventions: Medication administration, 1:1 MH assessment, maintained a safe and supportive environment, provided clear and simple instructions, provided encouragement regarding performance of ADLs, monitored behaviors and maintained clear boundaries, maintained Q15 minute safety checks. Response: Patient was fond in bed sleeping at change of shift. Patient continued to sleep and self isolate in room through out shift. Patient took all night medications without issue and retuned to laying down. Patient was encouraged to get up and participate in snack but refused. Plan: Crisis interruption, stabilization with medication adjustment, management and monitoring in a safe and therapeutic environment until stable. Patient has been referred to [facility].
--- NOTE | 2022-04-26 07:17 | NUR ---
Reassessment; Pt continues on Regular diet w/ avg intake 70% of meals and 42% of ONS, meeting est needs at this time. LBM 04/24 receiving routine colace. No new nutrition intervention implemented at this time, will continue to monitor. Recommendations: 1. Continue regular diet; encourage PO 2. Ensure Enlive TID; substitute Ensure Plus High Protein TID while out of Ensure Enlive; discontinue/decrease ONS frequency if pt continues with adequate PO intake of meals 3. Routine bowel care; utilize PRN bowel care 4. Weekly scaled wts Addendum: 04/26/22 at [address] Amended: Links added.
[2022-04-26 08:00] VITALS: BP 111/62
[2022-04-26] MEDS: lactose-reduced food (Ensure Enlive) - 237ml bottle PO SCH ×3 (08:00→18:00)
[2022-04-26] MEDS: buPROPion 75mg tablet PO SCH ×2 (08:05→13:00)
[2022-04-26] MEDS: pantoprazole 40mg Tablet.DR PO SCH (08:05)
[2022-04-26] MEDS: docusate sod 100mg capsule PO SCH ×2 (08:05→20:36)
[2022-04-26] MEDS: ESCITALOPRAM OXALATE 5 MG TABLET PO SCH (08:06)
--- NOTE | 2022-04-26 08:56 | NUR ---
[facility] bed available 05/02/22 DAVID Alfaro
--- NOTE | 2022-04-26 16:25 | NUR ---
Nursing Progress Note: Yasmany Spaulding Problem: Pt. was admitted from [facility] Pt. is on a 5150 for DTS. Per 5150: Pt. made suicidal statements, and reported placing a knife to his neck and starting to stab himself in a suicide attempt. Pt. has a history of 3-5 past suicide attempts, the most recent was one month ago. Patient was discharged from [facility] on 04/03/22. Dx of psychosis, depression, suicidal ideation. Current on voluntary Interventions: Medication administration, 1:1 MH assessment, maintained a safe and supportive environment, provided clear and simple instructions, provided encouragement regarding performance of ADLs, monitored behaviors and maintained clear boundaries, maintained Q15 minute safety checks. Response: Received pt. asleep, he awoke to take his medications and sat without saying a word. Pt. requires prompting to talk and answers briefly. He continues to endorse SI stating I think about doing it but would not elaborate today. Pt. denies HI, AH, VH and reports he is going to the [facility]. Pt. isolated in his room throughout the shift. He did attend meals unprompted and ate at least 50% of all meals offered. Pt. has poor intake of free water and educated on hydration. Pt. took a shower today, hair is combed, and is wearing street clothes. Plan: Crisis interruption, stabilization with medication adjustment, management and monitoring in a safe and therapeutic environment until stable. Patient has been referred to [facility].
[2022-04-26 20:00] VITALS: BP 91/53
[2022-04-26] MEDS: mirtazapine 15mg tablet PO SCH (20:37)
[2022-04-26] MEDS: OLANZAPINE 5 MG TABLET PO SCH (20:37)
--- NOTE | 2022-04-27 04:35 | NUR ---
Nursing Progress Note Problem: Pt. was admitted from [facility] Pt. is on a 5150 for DTS. Per 5150: Pt. made suicidal statements, and reported placing a knife to his neck and starting to stab himself in a suicide attempt. Pt. has a history of 3-5 past suicide attempts, the most recent was one month ago. Patient was discharged from [facility] on 04/03/22. Dx of psychosis, depression, suicidal ideation. Current on voluntary Interventions: Medication administration, 1:1 MH assessment, maintained a safe and supportive environment, provided clear and simple instructions, provided encouragement regarding performance of ADLs, monitored behaviors and maintained clear boundaries, maintained Q15 minute safety checks. Response: Received patient in room asleep. Self-isolating in bedroom. Reports during 1:1 SI right now, -HI, -AV/H, 4/10 depression and no anxiety. Pt with flat affect, avoiding eye contact. HR RRR, LSCTA, BS + 4 quads, PERRLA, - Homans, reports LBM 04/26/2022. Self-isolating in bedroom with lights off. Joined snack in community room. All medications taken, reports no ASE. Observed to be sleeping throughout shift. Plan: Crisis interruption, stabilization with medication adjustment, management and monitoring in a safe and therapeutic environment until stable. Patient has been accepted to [facility].
[2022-04-27] MEDS: lactose-reduced food (Ensure Enlive) - 237ml bottle PO SCH ×3 (08:00→18:00)
[2022-04-27 08:05] VITALS: BP 108/62
[2022-04-27] MEDS: pantoprazole 40mg Tablet.DR PO SCH (09:59)
[2022-04-27] MEDS: docusate sod 100mg capsule PO SCH ×2 (09:59→20:46)
[2022-04-27] MEDS: ESCITALOPRAM OXALATE 5 MG TABLET PO SCH (09:59)
[2022-04-27] MEDS: buPROPion 75mg tablet PO SCH ×2 (09:59→12:30)
--- NOTE | 2022-04-27 17:59 | NUR ---
Nursing Progress Note: Problem: Pt. was admitted from [facility] Pt. is on a 5150 for DTS. Per 5150: Pt. made suicidal statements, and reported placing a knife to his neck and starting to stab himself in a suicide attempt. Pt. has a history of 3-5 past suicide attempts, the most recent was one month ago. Patient was discharged from [facility] on 04/03/22. Dx of psychosis, depression, suicidal ideation. Current on voluntary Interventions: Medication administration, 1:1 MH assessment, maintained a safe and supportive environment, provided clear and simple instructions, provided encouragement regarding performance of ADLs, monitored behaviors and maintained clear boundaries, maintained Q15 minute safety checks. Response: Patient sleeping at shift change, but was up for breakfast. He comes and goes without saying a word to anyone. He accepts morning meds without comment. Patient nods his head when asked about SI, and will not talk about it. He shakes his head when asked about other MH symptoms. Patient is rarely seen between meals outside his room. He will discharge to the [facility] soon after [facility]. Plan: Crisis interruption, stabilization with medication adjustment, management and monitoring in a safe and therapeutic environment until stable. Patient has been referred to [facility].
[2022-04-27 19:00] VITALS: BP 90/51
[2022-04-27] MEDS: mirtazapine 15mg tablet PO SCH (20:46)
[2022-04-27] MEDS: OLANZAPINE 5 MG TABLET PO SCH (20:46)
--- NOTE | 2022-04-28 05:12 | NUR ---
Nursing Progress Note: Problem: Pt. was admitted from [facility] Pt. is on a 5150 for DTS. Per 5150: Pt. made suicidal statements, and reported placing a knife to his neck and starting to stab himself in a suicide attempt. Pt. has a history of 3-5 past suicide attempts, the most recent was one month ago. Patient was discharged from [facility] on 04/03/22. Dx of psychosis, depression, suicidal ideation. Current on voluntary Interventions: Medication administration, 1:1 MH assessment, maintained a safe and supportive environment, provided clear and simple instructions, provided encouragement regarding performance of ADLs, monitored behaviors and maintained clear boundaries, maintained Q15 minute safety checks. Response: Patient was observed sleeping at beginning of shift. Patient continued to sleep through out shift. Patient woke up to take night medications and retuned to bed. Patient refused to get up for snack. Nurse asked how patient felt about leaving in a couple of days. Patient spoke very low and stated he didn't want to leave. Plan: Crisis interruption, stabilization with medication adjustment, management and monitoring in a safe and therapeutic environment until stable. Patient has been referred to [facility].
[2022-04-28 07:33] VITALS: BP 88/56
[2022-04-28] MEDS: lactose-reduced food (Ensure Enlive) - 237ml bottle PO SCH ×3 (08:00→18:00)
[2022-04-28] MEDS: docusate sod 100mg capsule PO SCH ×2 (08:34→20:12)
[2022-04-28] MEDS: ESCITALOPRAM OXALATE 5 MG TABLET PO SCH (08:34)
[2022-04-28] MEDS: buPROPion 75mg tablet PO SCH ×2 (08:34→12:43)
[2022-04-28] MEDS: pantoprazole 40mg Tablet.DR PO SCH (08:34)
--- NOTE | 2022-04-28 17:48 | NUR ---
Nursing Progress Note: Problem: Pt. was admitted from [facility] Pt. is on a 5150 for DTS. Per 5150: Pt. made suicidal statements, and reported placing a knife to his neck and starting to stab himself in a suicide attempt. Pt. has a history of 3-5 past suicide attempts, the most recent was one month ago. Patient was discharged from [facility] on 04/03/22. Dx of psychosis, depression, suicidal ideation. Current on voluntary Interventions: Medication administration, 1:1 MH assessment, maintained a safe and supportive environment, provided clear and simple instructions, provided encouragement regarding performance of ADLs, monitored behaviors and maintained clear boundaries, maintained Q15 minute safety checks. Response: Patient gets up for breakfast on his own. He is eating better and spending more time out of his room. Patient continues to be depressed and speaks very little. Answers to questions continue to be very low volume if at all. He continues to be compliant with medications while he waits to go to [facility] Plan: Crisis interruption, stabilization with medication adjustment, management and monitoring in a safe and therapeutic environment until stable. Patient has been referred to [facility].
[2022-04-28 19:00] VITALS: BP 96/64
[2022-04-28] MEDS: mirtazapine 15mg tablet PO SCH (20:12)
[2022-04-28] MEDS: OLANZAPINE 5 MG TABLET PO SCH (20:12)
--- NOTE | 2022-04-29 01:29 | NUR ---
Nursing Progress Note: Problem: Pt. was admitted from [facility] Pt. is on a 5150 for DTS. Per 5150: Pt. made suicidal statements, and reported placing a knife to his neck and starting to stab himself in a suicide attempt. Pt. has a history of 3-5 past suicide attempts, the most recent was one month ago. Patient was discharged from [facility] on 04/03/22. Dx of psychosis, depression, suicidal ideation. Current on voluntary Interventions: Patient was observed sleeping at beginning of shift. Patient continued to sleep until right before snack time and began pacing around unit. Patient was very anti-social and avoiding eye contact while walking around unit. Patient participated in snack time and then returned back to his room. Patient took all night medications without issue. Plan: Crisis interruption, stabilization with medication adjustment, management and monitoring in a safe and therapeutic environment until stable. Patient has been referred to [facility].
[2022-04-29 08:00] VITALS: BP 99/60
[2022-04-29] MEDS: docusate sod 100mg capsule PO SCH ×2 (08:24→20:31)
[2022-04-29] MEDS: buPROPion 75mg tablet PO SCH ×2 (08:24→12:39)
[2022-04-29] MEDS: ESCITALOPRAM OXALATE 5 MG TABLET PO SCH (08:24)
[2022-04-29] MEDS: lactose-reduced food (Ensure Enlive) - 237ml bottle PO SCH ×3 (08:24→18:08)
[2022-04-29] MEDS: pantoprazole 40mg Tablet.DR PO SCH (08:24)
--- NOTE | 2022-04-29 15:05 | NUR ---
Nursing Progress Note: Problem: Pt. was admitted from [facility] Pt. is on a 5150 for DTS. Per 5150: Pt. made suicidal statements, and reported placing a knife to his neck and starting to stab himself in a suicide attempt. Pt. has a history of 3-5 past suicide attempts, the most recent was one month ago. Patient was discharged from [facility] on 04/03/22. Dx of psychosis, depression, suicidal ideation. Current on voluntary Interventions: Medication administration, 1:1 MH assessment, maintained a safe and supportive environment, provided clear and simple instructions, provided encouragement regarding performance of ADLs, monitored behaviors and maintained clear boundaries, maintained Q15 minute safety checks. Response: Received Pt in bed sleeping w/o distress at the beginning of this shift. Pt woke and was cooperative with vitals; ate meals well and took medications throughout the day w/o issue. Pt is cooperative but guarded and answers with short responses. Pt walked halls a bit and isolated in room and from others. Pt showered in AM and endorses passive SI but denies HI, AV/Hs. Pt states he is waiting for a bed to open at the [facility]. Plan: Crisis interruption, stabilization with medication adjustment, management and monitoring in a safe and therapeutic environment until stable. Patient has been referred to [facility].
[2022-04-29 20:00] VITALS: BP 91/59
[2022-04-29] MEDS: mirtazapine 15mg tablet PO SCH (20:31)
[2022-04-29] MEDS: OLANZAPINE 5 MG TABLET PO SCH (20:31)
--- NOTE | 2022-04-30 00:33 | NUR ---
Nursing Progress Note: Mir Problem: Pt. was admitted from [facility] Pt. is on a 5150 for DTS. Per 5150: Pt. made suicidal statements, and reported placing a knife to his neck and starting to stab himself in a suicide attempt. Pt. has a history of 3-5 past suicide attempts, the most recent was one month ago. Patient was discharged from [facility] on 04/03/22. Dx of psychosis, depression, suicidal ideation. Current on voluntary Interventions: Medication administration, 1:1 MH assessment, maintained a safe and supportive environment, provided clear and simple instructions, provided encouragement regarding performance of ADLs, monitored behaviors and maintained clear boundaries, maintained Q15 minute safety checks. Response: Received Pt resting in bed, pt cooperative with care. Pt has flat affect, states he has some depression and always feels suicidal but does not have a plan. Pt came out of room for snacks and took all HS medications without issue. Pt went to bed shortly after med pass. Plan: Crisis interruption, stabilization with medication adjustment, management and monitoring in a safe and therapeutic environment until stable. Patient has been referred to [facility].
[2022-04-30 07:14] VITALS: BP 94/59
[2022-04-30] MEDS: pantoprazole 40mg Tablet.DR PO SCH (08:16)
[2022-04-30] MEDS: docusate sod 100mg capsule PO SCH ×2 (08:16→20:24)
[2022-04-30] MEDS: buPROPion 75mg tablet PO SCH ×2 (08:17→14:15)
[2022-04-30] MEDS: lactose-reduced food (Ensure Enlive) - 237ml bottle PO SCH ×3 (08:17→18:01)
[2022-04-30] MEDS: ESCITALOPRAM OXALATE 5 MG TABLET PO SCH (08:17)
[2022-04-30] MEDS ORDERED: ESCI20TA39 PO (10:04)
[2022-04-30] MEDS ORDERED: BUPR-319 PO (10:04)
[2022-04-30] MEDS ORDERED: PANT-47 PO (10:04)
[2022-04-30] MEDS ORDERED: OLAN15TA20 PO (10:04)
[2022-04-30] MEDS ORDERED: MIRT-87 PO (10:04)
--- NOTE | 2022-04-30 17:05 | NUR ---
Nursing Progress Note: Problem: Pt. was admitted from [facility] Pt. is on a 5150 for DTS. Per 5150: Pt. made suicidal statements, and reported placing a knife to his neck and starting to stab himself in a suicide attempt. Pt. has a history of 3-5 past suicide attempts, the most recent was one month ago. Patient was discharged from [facility] on 04/03/22. Dx of psychosis, depression, suicidal ideation. Current on voluntary Interventions: Medication administration, 1:1 MH assessment, maintained a safe and supportive environment, provided clear and simple instructions, provided encouragement regarding performance of ADLs, monitored behaviors and maintained clear boundaries, maintained Q15 minute safety checks. Response: Patient woke up for breakfast, and came to community room for his meal and AM meds. Patient does not speak to his peers or join conversations. His eye contact is poor. Patient goes back to bed after breakfast, and sleeps until lunch time. He rates his depression at 4/10 today. SI is present with no plan. Poverty of speech is evident. Patient will discharge to the [facility] later this week. Plan: Crisis interruption, stabilization with medication adjustment, management and monitoring in a safe and therapeutic environment until stable. Patient has been referred to [facility].
[2022-04-30 20:16] VITALS: BP 95/57
[2022-04-30] MEDS: mirtazapine 15mg tablet PO SCH (20:24)
[2022-04-30] MEDS: OLANZAPINE 5 MG TABLET PO SCH (20:25)
--- NOTE | 2022-05-01 00:43 | NUR ---
Nursing Progress Note: Yasmany Problem: Pt. was admitted from [facility] Pt. is on a 5150 for DTS. Per 5150: Pt. made suicidal statements, and reported placing a knife to his neck and starting to stab himself in a suicide attempt. Pt. has a history of 3-5 past suicide attempts, the most recent was one month ago. Patient [facility] 04[facility]22. Dx of psychosis, depression, suicidal ideation. Current on voluntary Interventions: Medication administration, 1:1 MH assessment, maintained a safe and supportive environment, provided clear and simple instructions, provided encouragement regarding performance of ADLs, monitored behaviors and maintained clear boundaries, maintained Q15 minute safety checks. Response: Patient lying in bed resting, cooperative with care. States his depression is 5/10, has SI but no plan. Pt has flat effect with poor eye contact. Pt takes all HS medications without issue and goes back to sleep. Plan: Crisis interruption, stabilization with medication adjustment, management and monitoring in a safe and therapeutic environment until stable. Patient has been referred to [facility]
[2022-05-01] MEDS: pantoprazole 40mg Tablet.DR PO SCH (07:58)
[2022-05-01] MEDS: docusate sod 100mg capsule PO SCH ×2 (07:59→20:05)
[2022-05-01] MEDS: ESCITALOPRAM OXALATE 5 MG TABLET PO SCH (07:59)
[2022-05-01] MEDS: buPROPion 75mg tablet PO SCH ×2 (07:59→13:47)
[2022-05-01] MEDS: lactose-reduced food (Ensure Enlive) - 237ml bottle PO SCH ×3 (08:04→18:02)
[2022-05-01 08:37] VITALS: BP 100/55
--- NOTE | 2022-05-01 14:21 | NUR ---
Reassessment: Per EMR PO intake has significantly improved, documented with mostly 100% PO intake of meals. Pt still receiving an Ensure TID documented with 75-100% PO intake of ONS. TC to [facility], left message for RN with recommendation to discontinue ONS as pt now meeting estimated nutrient needs with PO intake of meals alone. [facility] 05/01. Will continue to follow. Recommendations: 1. Continue regular diet; encourage PO 2. Discontinue Ensure as pt meeting estimated nutrient needs with PO intake of meals 3. Routine bowel care; utilize PRN bowel care 4. Weekly scaled wts Addendum: 05/01/22 at [address] Amended: Links added.
--- NOTE | 2022-05-01 15:43 | NUR ---
Therapeutic group Description: Daily therapeutic groups support [facility] crisis-recovery environment. Topic: reading empowering poems, creating word collages/poems about empowerment. Group discussion veered into peer discussion of the dangers of using meth when you have a mental illness. One new peer was disruptive, and this typewriter assembly and parts inspector will conduct a structured, directive activities-based group tomorrow. Intervention: Therapeutic communication, peer support, validation by peers, coping skills and psychosocial education. Secondarily, intellectual and physical activity, peer, and staff companionship, alleviating and discouraging isolation. Response: Client listened quietly, briefly answered direct questions. Treatment Until stable, client requires time in a safe and therapeutic environment employing multidisciplinary treatments, including therapeutic groups.
--- NOTE | 2022-05-01 16:45 | NUR ---
Nursing Progress Note: Problem: Pt. was admitted from [facility] Pt. is on a 5150 for DTS. Per 5150: Pt. made suicidal statements, and reported placing a knife to his neck and starting to stab himself in a suicide attempt. Pt. has a history of 3-5 past suicide attempts, the most recent was one month ago. Patient was discharged from [facility] on 04/03/22. Dx of psychosis, depression, suicidal ideation. Current on voluntary Interventions: Medication administration, 1:1 MH assessment, maintained a safe and supportive environment, provided clear and simple instructions, provided encouragement regarding performance of ADLs, monitored behaviors and maintained clear boundaries, maintained Q15 minute safety checks. Response: Received patient sleeping in bed at change of shift. Patient is medication compliant. Patient came out of his room after lunch and sat in group room. Patient reports that he is depressed and thinking about SI, with no plan to act on it. Patient only answers closed ended questions, and states he has no concerns at this time. Plan: Crisis interruption, stabilization with medication adjustment, management and monitoring in a safe and therapeutic environment until stable. Patient has been referred to [facility].
[2022-05-01 19:19] VITALS: BP 93/59
[2022-05-01] MEDS: OLANZAPINE 5 MG TABLET PO SCH (20:05)
[2022-05-01] MEDS: mirtazapine 15mg tablet PO SCH (20:05)
--- NOTE | 2022-05-01 23:50 | NUR ---
Nursing Progress Note: Problem: Pt. was admitted from [facility] Pt. is on a 5150 for DTS. Per 5150: Pt. made suicidal statements, and reported placing a knife to his neck and starting to stab himself in a suicide attempt. Pt. has a history of 3-5 past suicide attempts, the most recent was one month ago. Patient was discharged from [facility] on 04/03/22. Dx of psychosis, depression, suicidal ideation. Current on voluntary Interventions: Medication administration, 1:1 MH assessment, maintained a safe and supportive environment, provided clear and simple instructions, provided encouragement regarding performance of ADLs, monitored behaviors and maintained clear boundaries, maintained Q15 minute safety checks. Response: Pt was in the group room at change of shift. Pt gives short answers and reports no needs. States he thinks going to the [facility] is going to help him but doesnt say how. Pt was assisted with shaving tonight. Pt isolates to himself and returned to his bedroom shortly before snack. Pt denies s/i, states he is feeling better. Pt took HS meds and went to bed. Plan: Crisis interruption, stabilization with medication adjustment, management and monitoring in a safe and therapeutic environment until stable. Patient has been referred to [facility].
[2022-05-02 08:00] VITALS: BP 92/56
[2022-05-02] MEDS: docusate sod 100mg capsule PO SCH (08:08)
[2022-05-02] MEDS: pantoprazole 40mg Tablet.DR PO SCH (08:09)
[2022-05-02] MEDS: buPROPion 75mg tablet PO SCH ×2 (08:09→12:53)
[2022-05-02] MEDS: ESCITALOPRAM OXALATE 5 MG TABLET PO SCH (08:09)
[2022-05-02] MEDS: lactose-reduced food (Ensure Enlive) - 237ml bottle PO SCH ×2 (08:14→13:05)
--- NOTE | 2022-05-02 14:15 | NUR ---
DISCHARGE NOTE: Patient is ready to discharge to [facility] today. Patient denies SI. Mood is good. Patient's belongings were given to patient at discharge.
== END 2022-05-02 14:15 | DRG 885 ==
LOC: ADULT MH 14:20
PROVIDERS: ADMIT Psychiatry & Neurology Psychiatry; ATTEND Psychiatry & Neurology Psychiatry
DX: F33.2 Major depressive disorder, recurrent severe without psychotic features (principal); R45.851 Suicidal ideations; E46 Unspecified protein-calorie malnutrition; Z20.822 Contact with and (suspected) exposure to COVID-19; K21.9 Gastro-esophageal reflux disease without esophagitis; K59.00 Constipation, unspecified; Z21 Asymptomatic human immunodeficiency virus [HIV] infection status; Z59.00 Homelessness unspecified; Z81.8 Family history of other mental and behavioral disorders; Z91.14 Patient's other noncompliance with medication regimen; Z56.0 Unemployment, unspecified; Z68.20 Body mass index [BMI] 20.0-20.9, adult; Z79.899 Other long term (current) drug therapy
CPT/HCPCS: 36415; 71045; 74018; 80048; 80053; 85025; 86361; 87081; 87535; 87635